=== PATIENT | female | born 1940 | race Caucasian/White ===

== ENCOUNTER 2021-06-04 22:08 | Inpatient (IN) | payer MEDICARE, OTHER ==
[~2021-06-04] VITALS: Ht 165.1 cm; Wt 65.1 kg
[2021-06-04] MEDS ORDERED: ACETAMINOPHEN TAB 650MG DOSE (2X325MG) PO ONE (22:30)
[2021-06-04 23:02] LABS: HEMATOCRIT 39.7 % (36.0-47.0); HEMOGLOBIN 13.1 g/dl (12.0-15.5); MEAN CORPUSCULAR HEMOGLOBIN 30.4 pg (27.0-33.0); MEAN CORPUSCULAR VOLUME 92.1 fl (80.0-96.0); PLATELET COUNT, AUTOMATED 180 10^3/uL (150-450); RED BLOOD COUNT 4.31 10^6/uL (4.00-5.40)
[2021-06-04 23:17] LABS: INR 1.11; PARTIAL THROMBOPLASTIN TIME 26.2 SECONDS (24.2-38.5); PROTHROMBIN TIME 14.5 SECONDS (12.5-14.3)
[2021-06-04] MEDS ORDERED: NS 1,000 ML IV ONE (23:25)
[2021-06-04 23:44] LABS: ALBUMIN 3.5 GM/DL (3.2-5.2); ALT/SGPT 26 U/L (12-78); BILIRUBIN,TOTAL 1.9 MG/DL (0.2-1.0); BLOOD UREA NITROGEN 26 MG/DL (7-18); CALCIUM LEVEL 10.4 MG/DL (8.8-10.2); CARBON DIOXIDE LEVEL 25 MEQ/L (21-32); CHLORIDE LEVEL 107 MEQ/L (98-107); CK-MB VALUE MASS < 1.0 NG/ML (<3.6); CPK CREATINE PHOSPHOKINASE 71 U/L (26-192); CREATININE FOR GFR 1.59 MG/DL (0.55-1.30); GLOMERULAR FILTRATION RATE 33.3 (>32); GLUCOSE, FASTING 117 MG/DL (70-100); LIPASE 56 U/L (73-393); MB/CK RELATIVE INDEX 1.41 (< OR =4); POTASSIUM SERUM 3.2 MEQ/L (3.5-5.1); SODIUM LEVEL 140 MEQ/L (136-145); TOTAL PROTEIN 7.3 GM/DL (6.4-8.2); TROPONIN I < 0.02 NG/ML (< 0.10)
[2021-06-04 23:45] LABS: LYMPHOCYTES 3 % (16-44); METAMYELOCYTES 2 % (0-0); NEUTROPHILS 87 % (28-66); PLATELET CLUMPS SMALL AMT; PLATELET ESTIMATE NORMAL (NORMAL); SMUDGE CELLS 1+
[2021-06-04] MEDS: METOPROLOL 5 MG/5 ML VIAL IV SCH (23:55)
--- NOTE | 2021-06-04 23:56 | REPVR ---
PROCEDURE INFORMATION: Exam: XR Chest Exam date and time: 06/04/2021 10:32 PM Age: 80 years old Clinical indication: Pain; Angina pectoris; Additional info: Chest pain TECHNIQUE: Imaging protocol: XR of the chest. Views: 1 view. COMPARISON: 1. CR Chest, 2 view PA, Lat 2015-06-13 12:[address] Chest with contrast 2015-05-09 16:29 FINDINGS: Lungs: Unremarkable. No consolidation. Pleural spaces: Unremarkable. No pleural effusion. No pneumothorax. Heart/Mediastinum: Unremarkable. No cardiomegaly. Bones/joints: Unremarkable. IMPRESSION: No acute findings. Electronically signed by: Olivier Bardales On 06/04/2021 23:55:48 PM
[2021-06-05] MEDS ORDERED: cefTRIAXone SOD 2 GM in D5W MINI-BAG PLUS 50 ML IV ONE (00:10)
[2021-06-05] MEDS ORDERED: NS 910 ML in IV 1 EA IV ONE (00:10)
[2021-06-05] MEDS: METOPROLOL 5 MG/5 ML VIAL IV SCH ×2 (00:40→01:42)
[2021-06-05] MEDS ORDERED: AMIODARONE HCL 150 MG in IV 1 EA IV STA (01:40)
[2021-06-05] MEDS ORDERED: POTASSIUM CHLORIDE 10 MEQ SR TABLET PO ONE (01:45)
[2021-06-05] MEDS ORDERED: VANCOMYCIN HCL 750 MG, VIAL MATE ADAPTER 1 EACH in NS 250 ML IV ONE (02:00)
[2021-06-05] MEDS ORDERED: VANCOMYCIN HCL 500 MG in D5W MINI-BAG PLUS 100 ML IV ONE (03:00)
[2021-06-05] MEDS ORDERED: NS 1,000 ML IV ONE (03:25)
--- NOTE | 2021-06-05 03:59 | HPEPDOC ---
[facility] Medical History & Physical Date of Admission Jun 05, 2021 Date of Service: Jun 05, 2021 History and Physical CHIEF COMPLAINT: shortness of breath HISTORY OF PRESENT ILLNESS: 80-year-old female presents to the ER with 3-day history of worsening shortness of breath and "gas pain" epigastric abdominal discomfort labored breathing with no improvement after taking some Maalox and coke at home patient said that she has been weak and felt like her knees were buckling from under her unable to walk down the hallway and felt terrible with epigastric and substernal chest pain described as gas pain which did not get better after burping. Patient denies any diaphoresis nausea vomiting fever chills cough diarrhea or constipation she denied any dysuria urgency frequency. Patient lives alone since her but her brother calls her every night and encouraged her to come to the ER because she sounded short of breath on the telephone. Patient usually goes country music dancing but was very tired and fatigued for the past 3 days In the emergency room she was found to have uncontrolled atrial fibrillation with ventricular rate of 127 to 180 bpm and was given a total of 10 mg of intravenous Lopressor with decrease in blood pressure from 125 on admission to 96/52, given 1 dose of intravenous amiodarone 150 mg. She was found to have bandemia of 8 fever 102.5 lactic acidosis elevated bilirubin and Cystitis. Hospitalist was called to admit the patient for sepsis secondary to urinary tract infection cystitis and new onset A. fib with RVR. PAST MEDICAL HISTORY: 4.1 cm ascending thoracic aortic aneurysm, hepatic and right renal cysts, hypertension dyslipidemia cervical cancer kidney stones urinary tract infection with MRSA and Enterococcus faecalis Escherichia coli PAST SURGICAL HISTORY: Hysterectomy due to cervical cancer left nephrectomy left kidney stent chronic kidney disease stage III SOCIAL HISTORY: Lives alone has a cat never smoked cigarettes no alcohol use or recreational drug use retired previously worked for [employer] has a brother Alvin Isabella patient says that her healthcare proxy is her primary care physician Dr. Abby Goss no healthcare proxy form has been filled out. Patient says she does not want CPR or intubation with mechanical ventilation but has not never filled out a MOLST form FAMILY HISTORY: Mother father in their 90s and known medical problems ALLERGIES: Please see below. REVIEW OF SYSTEMS: 10 point review of systems negative aside from positive findings in HPI HOME MEDICATIONS: Please see below. PHYSICAL EXAMINATION: VITAL SIGNS: See below GENERAL APPEARANCE: No distress no pallor awake alert oriented x3 HEENT: Face is symmetric tongue is midline pupils equally round reactive extraocular muscles are intact missing teeth no JVD no thyromegaly no cervical lymphadenopathy CARDIOVASCULAR: S1-S2 irregularly irregular tachycardic LUNGS: Diminished air entry is equal bilaterally clear to auscultation ABDOMEN: Positive bowel sounds soft slightly tender epigastric right upper quadrant no rebound or guarding no hepatosplenomegaly EXTREMITIES: Trace edema bilateral lower extremity bilateral knees without effusion full range of motion LABORATORY DATA: See below. IMAGING: See below MICROBIOLOGY: Please see below. ASSESSMENT: 80-year-old female presents with new onset A. fib with RVR cystitis and abnormal liver function test with complaints of "gas pain" in the epigastric area. Atrial fibrillation with rapid ventricle response, new onset -Due to hypotension with sbp 96 mmhg, pt was given iv amiodarone, s/p metoprolol 10 mg iv in the er, eliquis renally dosed bid -echo ordered -ivfluids to maintain map>70 -Check cardiac markers every 6 hourly Cystitis -due to history of urine cx : (+) mrsa, enteroccocus, vanco iv given to be renally dosed by pharmacy. -IV ceftriaxone. Change antibiotics depending on urine culture sensitivity result Abnormal liver function tests with elevated bilirubin -N.p.o. after midnight -Ultrasound gallbladder rule out cholelithiasis, biliary colic Ascending thoracic aortic aneurysm 4.1cm -Repeat CT chest -Monitor blood pressure History of cervical cancer status post hysterectomy Dyslipidemia -Check lipid profile. -Resume home dose of pravastatin Hypothyroidism -Check TSH Chronic kidney disease stage III -History of kidney stones recurrent UTIs left kidney stent status post left nephrectomy -Avoid nephrotoxins renally dose all medications strict I's and O's Bilateral knee pain -Check x-rays bilateral knee. -Avoid NSAIDs due to CKD stage III. -Tylenol as needed for pain CODE STATUS: Obtain MOLST form from patient's primary care physician Dr. Abby Goss patient does not have a MOLST form or healthcare proxy form with her. She says that Dr. Goss is her healthcare proxy. She states that she does not want CPR intubation or mechanical ventilation. Diet: Renal diet DVT prophylaxis: On Eliquis for new onset A. fib Vital Signs Vital Signs Date Time Temp Pulse Resp B/P (MAP) Pulse Ox O2 Delivery O2 Flow Rate FiO2 06/05/21 02:45 98.3 100 100/58 (72) 91 06/04/21 23:15 18 Room Air Laboratory Data Labs 24H Laboratory Tests 2 06/04/21 22:41: Neutrophils (%) (Auto) , Nucleated Red Blood Cells % (auto) 0.0, Neutrophils 87H, Band Neutrophils 8, Lymphocytes (Manual) 3L, Metamyelocytes 2H, Smudge Cells 1+, Platelet Estimate NORMAL, Clumped Platelets SMALL AMT, Prothrombin Time 14.5H, Prothromb Time International Ratio 1.11, Activated Partial Thromboplast Time 26.2, Anion Gap 8, Glomerular Filtration Rate 33.3, Lactic Acid Level 3.1*H, Calcium Level 10.4H, Total Bilirubin 1.9H, Direct Bilirubin 1.0H, Aspartate Amino Transf (AST/SGOT) 28, Alanine Aminotransferase (ALT/SGPT) 26, Alkaline Phosphatase 180H, Total Creatine Kinase 71, Creatine Kinase MB < 1.0, Creatine Kinase MB Relative Index 1.41, Troponin I < 0.02, Total Protein 7.3, Albumin 3.5, Albumin/Globulin Ratio 0.9L, Lipase 56L, Thyroid Stimulating Hormone (TSH) 3.060 06/05/21 00:32: Urine Color FAISAL, Urine Appearance TURBIDH, Urine pH 5.0, Urine Specific [place] 1.011, Urine Protein 2+H, Urine Glucose (UA) NEGATIVE, Urine Ketones NEGATIVE, Urine Blood 3+H, Urine Nitrite POSITIVEH, Urine Bilirubin NEGATIVE, Urine Urobilinogen 0.2, Urine Leukocyte Esterase 3+H, Urine WBC (Auto) TNTCH, Urine RBC (Auto) 169H, Urine Hyaline Casts (Auto) 0, Urine Bacteria (Auto) 3+H, Urine Squamous Epithelial Cells 0, Urine Mucus (Auto) SMALL, Urine Sperm (Auto) CBC/BMP Laboratory Tests 06/04/21 22:41 Microbiology Microbiology 06/05/21 Urine Culture, Received Pending 06/04/21 Respiratory Virus Panel (PCR) (MERRY) - Final, Complete 06/04/21 Blood Culture, Received Pending 06/04/21 Blood Culture, Received Pending Allergies Coded Allergies: No Known Allergies (Unverified , 06/04/21) A-FIB/CHADSVASC A-FIB History Current/History of A-Fib/PAF?: Yes Current PO Anticoag Therapy: Yes Age/Risk Factor Scoring CHADSVASC: CHADSVASC Response (Comments) Value Age Risk Factor Age >/= 75 years old 2 Gender Risk Factor Female 1 Hx of CHF No 0 Hx of HTN Yes 1 Hx of Stroke/TIA/or VTE No 0 Hx of Diabetes No 0 Hx of Vascular Disease No 0 Total 4 Treatment Treatment ordered: Apixaban MONIKA GOTTI MD Jun 05, 2021 03:49
[2021-06-05 04:11] LABS: HEMATOCRIT 34.3 % (36.0-47.0); HEMOGLOBIN 11.2 g/dl (12.0-15.5); MEAN CORPUSCULAR HEMOGLOBIN 30.4 pg (27.0-33.0); MEAN CORPUSCULAR HGB CONC 32.7 g/dl (32.0-36.5); MEAN CORPUSCULAR VOLUME 93.2 fl (80.0-96.0); PLATELET COUNT, AUTOMATED 159 10^3/uL (150-450); RED BLOOD COUNT 3.68 10^6/uL (4.00-5.40); WHITE BLOOD COUNT 19.5 10^3/uL (4.0-10.0)
--- NOTE | 2021-06-05 04:16 | REPVR ---
PROCEDURE INFORMATION: Exam: XR Right Knee Exam date and time: 06/05/2021 4:07 AM Age: 80 years old Clinical indication: Pain; Knee; Bilateral; Additional info: Knee pain TECHNIQUE: Imaging protocol: XR Right knee. Views: 1 or 2 views. COMPARISON: No relevant prior studies available. FINDINGS: Bones/joints: Moderate severe tricompartmental degenerative joint disease. No acute fracture or dislocation. Soft tissues: Normal. IMPRESSION: No acute osseous abnormality. PROCEDURE INFORMATION: Exam: XR Left Knee Exam date and time: 06/05/2021 4:07 AM Age: 80 years old Clinical indication: Pain; Knee; Bilateral; Additional info: Knee pain TECHNIQUE: Imaging protocol: XR Left knee. Views: 1 or 2 views. COMPARISON: No relevant prior studies available. FINDINGS: Bones/joints: Moderate severe tricompartmental degenerative joint disease. No acute fracture or dislocation. Soft tissues: Normal. IMPRESSION: No acute osseous abnormality. Electronically signed by: Olivier Bardales On 06/05/2021 04:15:21 AM
[2021-06-05] MEDS ORDERED: APIXABAN 5 MG TAB (ELIQUIS) PO STA (04:21)
[2021-06-05 04:37] LABS: LYMPHOCYTES 2 % (16-44); METAMYELOCYTES 8 % (0-0); MONOCYTES 1 % (0-5); NEUTROPHILS 76 % (28-66)
[2021-06-05 04:38] LABS: PLATELET ESTIMATE DECREASED (NORMAL)
[2021-06-05 04:40] LABS: SMUDGE CELLS 1+
[2021-06-05 04:41] LABS: PLATELET CLUMPS SMALL AMT
[2021-06-05 04:48] VITALS: BP 108/74
[2021-06-05 04:54] LABS: BLOOD UREA NITROGEN 28 MG/DL (7-18); CARBON DIOXIDE LEVEL 23 MEQ/L (21-32); CHLORIDE LEVEL 112 MEQ/L (98-107); CREATININE FOR GFR 1.56 MG/DL (0.55-1.30); GLUCOSE, FASTING 115 MG/DL (70-100); POTASSIUM SERUM 3.8 MEQ/L (3.5-5.1); SODIUM LEVEL 142 MEQ/L (136-145)
[2021-06-05 04:55] LABS: CALCIUM LEVEL 8.9 MG/DL (8.8-10.2); CHOLESTEROL LEVEL 121 MG/DL (<200); CK-MB VALUE MASS < 1.0 NG/ML (<3.6); CPK CREATINE PHOSPHOKINASE 62 U/L (26-192); HDL CHOLESTEROL 59 MG/DL (>40); LDL CHOLESTEROL 50 MG/DL (<100); MAGNESIUM LEVEL 1.9 MG/DL (1.8-2.4); MB/CK RELATIVE INDEX 1.61 (< OR =4); NON-HDL-C 62 MG/DL; TRIGLYCERIDES LEVEL 60 MG/DL (<150); TROPONIN I 0.02 NG/ML (< 0.10)
--- NOTE | 2021-06-05 05:26 | ECGEPIP ---
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
[2021-06-05] MEDS ORDERED: PRAV40TA2 PO (06:05)
[2021-06-05] MEDS ORDERED: ACET650T61 PO (06:05)
[2021-06-05] MEDS ORDERED: AMLO1TAB25 PO (06:05)
[2021-06-05] MEDS ORDERED: CLON-412 PO (06:05)
[2021-06-05] MEDS ORDERED: D31000TA2 PO (06:05)
[2021-06-05] MEDS ORDERED: BENA20TA PO (06:05)
[2021-06-05] MEDS: METOPROLOL TART 25 MG TABLET PO SCH ×4 (06:12→23:50)
[2021-06-05 08:00] VITALS: BP 115/79
[2021-06-05] MEDS: LACTOBACILLUS ACIDOPHILUS CAP (BACID) PO SCH ×3 (08:32→17:43)
--- NOTE | 2021-06-05 09:11 | REPVR ---
PROCEDURE INFORMATION: Exam: US Abdomen, Limited; Right Upper Quadrant Exam date and time: 06/05/2021 6:57 AM Age: 80 years old Clinical indication: Abnormal findings; Abnormal lab test; Elevated liver enzymes; Additional info: Elevated bili TECHNIQUE: Imaging protocol: US abdomen. Real time ultrasound with image documentation. Limited exam focused on the right upper quadrant. COMPARISON: CT Chest with contrast 05/09/2015 4:29 PM FINDINGS: Liver: There are few scattered hepatic cysts. Gallbladder: The gallbladder is partially distended. There is a 4 mm gallbladder polyp. There are no gallstones. Common bile duct: The common bile duct measures 3 mm. Pancreas: Visualized pancreas is unremarkable. Right kidney: The right kidney measures 13.1 cm in greatest sagittal dimension. There is moderate right hydronephrosis. There is a simple cyst extending from the right upper pole measuring 4.4 cm. IMPRESSION: 1. There is no biliary duct dilatation. 2. 4 mm gallbladder polyp. A repeat exam in 6 months is recommended to document for stability. 3. Moderate right hydronephrosis of uncertain etiology. Electronically signed by: Kalpesh Rowland On 06/05/2021 09:11:00 AM
[2021-06-05 12:00] VITALS: BP 131/75
[2021-06-05 16:00] VITALS: BP 131/83
[2021-06-05] MEDS: NS 1,000 ML IV SCH ×2 (16:40→21:24)
--- NOTE | 2021-06-05 17:21 | IPNPDOC ---
Text Note Date of Service The patient was seen on 06/05/21. NOTE Subjective: -Reports feeling better than she did on presentation -Otherwise currently without pain Objective: VITAL SIGNS: See below GENERAL APPEARANCE: NAD, conversational, AOx3 HEENT: NCAT, EOMI, moist mucous membranes CARDIOVASCULAR: Irregularly irregular and tachycardic LUNGS: Some wheezing close to bilateral apices, otherwise clear ABDOMEN:Normoactive bowel sounds, soft nontender on my examination without rebound or guarding EXTREMITIES: Trace edema bilateral lower extremity edema. WWP Psych: Aox3 LABORATORY DATA: Reviewed IMAGING: Gall bladder US: Liver: There are few scattered hepatic cysts. Gallbladder: The gallbladder is partially distended. There is a 4 mm gallbladder polyp. There are no gallstones. Common bile duct: The common bile duct measures 3 mm. Pancreas: Visualized pancreas is unremarkable. Right kidney: The right kidney measures 13.1 cm in greatest sagittal dimension. There is moderate right hydronephrosis. There is a simple cyst extending from the right upper pole measuring 4.4 cm. IMPRESSION: 1. There is no biliary duct dilatation. 2. 4 mm gallbladder polyp. A repeat exam in 6 months is recommended to document for stability. 3. Moderate right hydronephrosis of uncertain etiology. MICROBIOLOGY: Please see below. ASSESSMENT: 80-year-old female presents with new onset A. fib with RVR cystitis and abnormal liver function test with complaints of "gas pain" in the epigastric area. New onset atrial fibrillation with rapid ventricle response -s/p ED metop and amiodarone x 1 dose in the ED -Was started on eliquis renally dosed bid, will continue -TTE pending -s/p IVF, check repeat labs for resolution of lactic acidosis, otherwise normotensive -negative troponin, EKG without acute ST changes Sepsis 2/2 UTI: fever, tachycardia, leukocytosis with bandemia and lactic acidosis with +++UA -Positive UA, with pending urine culture, to follow up speciation and sensitivities -f/u BCx -s/p 3L IVF -Has a history of mrsa and enteroccocus and for now will continue renally dosed by pharmacy vancomycin for 24h, in addition to ceftriaxone. UTI: --Positive UA, with pending urine culture, to follow up speciation and se nsitivities -f/u BCx -antibiotics as noted above Cholestatic LFT abnormalities with elevated alk phos bilirubin -Ultrasound gallbladder showed a polyp but without stones of biliary duct dilatation -check GGT -repeat LFTs this PM -no noted complaints or examination findings at this moment, will monitor History of ascending thoracic aortic aneurysm 4.1cm, last noted imaging was in 2014 -Pending TTE -Normotensive currently VALERIANO on CKD with a history of remote L nephrectomy and history of prior kidney stones -Gallbladder US noted R moderate hydro. Now pending CT A/P -s/p fluids, repeat BMP -strict I/Os -holding ACEi among the antihypertensives while septic Hypertension: holding all meds while septic -holding benazepril, amlodipine and clonidine Dyslipidemia -Resume home pravastatin CODE STATUS: DNR/DNI Diet: Renal diet DVT prophylaxis: On Eliquis for new onset A. fib VS,Fishbone, I+O VS, Fishbone, I+O Laboratory Tests 06/04/21 22:41 06/05/21 04:05 Vital Signs Date Time Temp Pulse Resp B/P (MAP) Pulse Ox O2 Delivery O2 Flow Rate FiO2 06/05/21 12:38 97 131/75 06/05/21 12:00 97.8 16 87 Room Air I&O- Last 24 Hours up to 6 AM 06/05/21 06:00 Intake Total 1960 ml Balance 1960 ml NICOLASA WEATHERS MD Jun 05, 2021 17:21
[2021-06-05] MEDS: PRAVASTATIN 20 MG TAB PO SCH (17:43)
--- NOTE | 2021-06-05 18:10 | REPVR ---
PROCEDURE INFORMATION: Exam: CT Abdomen And Pelvis Without Contrast Exam date and time: 06/05/2021 5:28 PM Age: 80 years old Clinical indication: Abnormal findings; Abnormal radiologic finding of the abdomen; Radiologic exam and body structure: Reed with noted hydro on gall bladder US; Prior surgery; Additional info: History of aaa, reed with noted hydro on gall bladder US TECHNIQUE: Imaging protocol: Computed tomography of the abdomen and pelvis without contrast. Radiation optimization: All CT scans at this facility use at least one of these dose optimization techniques: automated exposure control; mA and/or kV adjustment per patient size (includes targeted exams where dose is matched to clinical indication); or iterative reconstruction. COMPARISON: US Abdomen 06/05/2021 6:43 AM FINDINGS: Lungs: Bibasilar atelectasis. Air bronchograms demonstrated in an infiltrate in the medial basal segment of the left lower lobe. Clinical correlation to exclude focus of pneumonitis suggested. Pleural spaces: Small bilateral pleural effusions. Heart: Cardiomegaly. Liver: Multiple hypodensities demonstrated in the liver measuring up to 1.6 cm in segment 2. Findings likely correspond to the cysts demonstrated on prior ultrasound. Confirmation with hepatic MRI could be obtained if further imaging is desired. Gallbladder and bile ducts: Normal. No calcified stones. No ductal dilation. Pancreas: Normal. No ductal dilation. Spleen: Normal. No splenomegaly. Adrenal glands: There is bilateral adrenal hyperplasia. Kidneys and ureters: Simple cyst upper pole right kidney measures 3.9 cm. No follow-up suggested. There has been an apparent left nephrectomy with absence of the kidney in the left renal fossa or pelvis in this patient with no reported history of nephrectomy. Typically expected postoperative changes demonstrated. No mass demonstrated. There is moderate right hydroureteronephrosis with the distal right ureter traced to the level of the origin of the right external iliac artery below which still ureter is not clearly visualized. Uncertain as to whether there is obstructive regional adenopathy or other obstructive mass resulting in the hydronephrosis. Further evaluation with postcontrast CT urography suggested if clinically desired. There is right renal hypertrophy with sagittal dimensions of the right kidney measuring 13 cm. Stomach and bowel: There is poor distention and thickening of the hay of the stomach most likely related to incomplete distention with oral contrast media or water. If there is any suspicion for infiltrative pathology further evaluation suggested. There is increased feces throughout the colon consistent with constipation. Mild diverticulosis is present in the left colon. No diverticulitis. Appendix: No evidence of appendicitis. Intraperitoneal space: There is a small amount of free intraperitoneal fluid present. Vasculature: The aortoiliac vessels demonstrate moderate atherosclerotic calcification. Lymph nodes: Unremarkable. No enlarged lymph nodes. Urinary bladder: Unremarkable as visualized. Reproductive: There has been a hysterectomy. Bones/joints: The spine demonstrates mild degenerative changes. Mild central spinal stenosis L2-L3, moderate central spinal stenosis L3-L4 and moderate to severe central spinal stenosis L4-L5. Bulging annulus L5-S1. Soft tissues: There is mild soft tissue edema demonstrated in the abdominal wall, flanks and buttock regions consistent with anasarca. IMPRESSION: 1. Air bronchograms demonstrated in an infiltrate in the medial basal segment of the left lower lobe. Clinical correlation to exclude focus of pneumonitis suggested. 2. Cardiomegaly. 3. Multiple hypodensities demonstrated in the liver. Findings likely correspond to the cysts demonstrated on prior ultrasound. Confirmation with hepatic MRI could be obtained if further imaging is desired. 4. There is bilateral adrenal hyperplasia. 5. There has been an apparent left nephrectomy with absence of the kidney in the left renal fossa or pelvis in this patient with no reported history of nephrectomy. Typically expected postoperative changes demonstrated. No mass demonstrated. 6. There has been a hysterectomy. 7. Right renal hypertrophy. There is moderate right hydroureteronephrosis with the distal right ureter traced to the level of the origin of the right external iliac artery below which still ureter is not clearly visualized. Uncertain as to whether there is obstructive regional adenopathy or other obstructive mass resulting in the hydronephrosis. Further evaluation with postcontrast CT urography suggested if clinically desired. 8. There is a small amount of free intraperitoneal fluid present. 9. There is increased feces throughout the colon consistent with constipation. 10. Anasarca. 11. Mild diverticulosis is present in the left colon. No diverticulitis. COMMENTS: Consistent with the [employer]'s Incidental Findings Committee white paper (J Am Carson Radiol 2018): Any incidental renal lesion less than 1 cm or classified as too small to characterize, or any incidental cystic renal lesion characterized as simple-appearing, is likely benign. No follow-up imaging is recommended for these lesions per consensus recommendations based on imaging criteria. Electronically signed by: Eliecer Sykes On 06/05/2021 18:09:55 PM
[2021-06-05 18:17] LABS: HEMATOCRIT 35.9 % (36.0-47.0); HEMOGLOBIN 11.9 g/dl (12.0-15.5); MEAN CORPUSCULAR HEMOGLOBIN 30.8 pg (27.0-33.0); MEAN CORPUSCULAR HGB CONC 33.1 g/dl (32.0-36.5); PLATELET COUNT, AUTOMATED 174 10^3/uL (150-450); RED BLOOD COUNT 3.86 10^6/uL (4.00-5.40); WHITE BLOOD COUNT 27.6 10^3/uL (4.0-10.0)
[2021-06-05 18:53] LABS: CALCIUM LEVEL 9.7 MG/DL (8.8-10.2); CREATININE FOR GFR 1.71 MG/DL (0.55-1.30); GLOMERULAR FILTRATION RATE 30.6 (>32); POTASSIUM SERUM 4.7 MEQ/L (3.5-5.1)
[2021-06-05 19:03] LABS: BILIRUBIN,DIRECT 0.3 MG/DL (0.0-0.2); BILIRUBIN,TOTAL 0.8 MG/DL (0.2-1.0); TOTAL PROTEIN 6.9 GM/DL (6.4-8.2)
[2021-06-05 20:00] VITALS: BP 137/79
[2021-06-05] MEDS: PIPERACILLIN/TAZOBACTAM SOD 3.375 GM in D5W MINI-BAG PLUS 50 ML IV SCH (20:09)
[2021-06-05] MEDS: APIXABAN 2.5 MG TAB (ELIQUIS) PO SCH (20:11)
[2021-06-05] MEDS ORDERED: IPRATROPIUM 0.5MG/ALBUTEROL 2.5MG INH SOL UD 3ML (DUONEB) NEB ONE (20:20)
[2021-06-06] VITALS: BP 143/82
[2021-06-06] MEDS ORDERED: VANCOMYCIN HCL 1,000 MG, VIAL MATE ADAPTER 1 EACH in NS 250 ML IV SCH ×3
[2021-06-06 00:57] LABS: NT-PRO BNP 15645 PG/ML (<450)
[2021-06-06] MEDS ORDERED: FUROSEMIDE 40MG/4ML VIAL (J1940) IV ONE ×2 (01:05→10:15)
--- NOTE | 2021-06-06 02:10 | REPVR ---
PROCEDURE INFORMATION: Exam: XR Chest Exam date and time: 06/06/2021 12:36 AM Age: 80 years old Clinical indication: Other: Hypoxia TECHNIQUE: Imaging protocol: XR of the chest. Views: 1 view. COMPARISON: CR PORTABLE CHEST X-RAY 06/04/2021 10:27 PM FINDINGS: Lungs: Slight left base clearing with better delineation of the left hemidiaphragm. Question of minimal right infrahilar infiltrate or atelectasis since the prior study. Pleural spaces: Unremarkable. No pleural effusion. No pneumothorax. Heart/Mediastinum: The heart and mediastinum are unchanged. Bones/joints: Unremarkable. IMPRESSION: 1. Slight left base clearing since 06/04/2021. 2. Question of minimal right infrahilar infiltrate or atelectasis since the prior study. Electronically signed by: Ismael Tamayo On 06/06/2021 02:09:58 AM
[2021-06-06] MEDS: PIPERACILLIN/TAZOBACTAM SOD 3.375 GM in D5W MINI-BAG PLUS 50 ML IV SCH ×4 (04:01→20:07)
[2021-06-06 04:42] VITALS: BP 128/78
[2021-06-06] MEDS: METOPROLOL TART 25 MG TABLET PO SCH ×4 (04:55→23:29)
[2021-06-06 05:48] LABS: BASO % 0.2 % (0.0-1.0); HEMATOCRIT 34.9 % (36.0-47.0); HEMOGLOBIN 11.7 g/dl (12.0-15.5); LYMPH # 0.5 10^3/uL (1.5-5.0); LYMPH % 1.9 % (24.0-44.0); MEAN CORPUSCULAR HEMOGLOBIN 30.7 pg (27.0-33.0); MEAN CORPUSCULAR HGB CONC 33.5 g/dl (32.0-36.5); MEAN CORPUSCULAR VOLUME 91.6 fl (80.0-96.0); MONO # 0.6 10^3/uL (0.0-0.8); MONO % 2.2 % (2.0-8.0); NEUTROPHILS # 24.2 10^3/uL (1.5-8.5); NEUTROPHILS % 93.6 % (36.0-66.0); PLATELET COUNT, AUTOMATED 158 10^3/uL (150-450); RED BLOOD COUNT 3.81 10^6/uL (4.00-5.40); WHITE BLOOD COUNT 25.8 10^3/uL (4.0-10.0)
[2021-06-06 05:59] LABS: CALCIUM LEVEL 8.9 MG/DL (8.8-10.2); CREATININE FOR GFR 1.81 MG/DL (0.55-1.30); GLOMERULAR FILTRATION RATE 28.6 (>32); POTASSIUM SERUM 4.4 MEQ/L (3.5-5.1)
[2021-06-06 08:00] VITALS: BP 138/92
[2021-06-06] MEDS: PRAVASTATIN 20 MG TAB PO SCH (08:23)
[2021-06-06] MEDS: LACTOBACILLUS ACIDOPHILUS CAP (BACID) PO SCH ×3 (08:23→20:06)
[2021-06-06] MEDS: APIXABAN 2.5 MG TAB (ELIQUIS) PO SCH ×2 (08:24→20:06)
[2021-06-06] MEDS ORDERED: cefTRIAXone SOD 1 GM in D5W MINI-BAG PLUS 50 ML IV SCH (09:00)
--- NOTE | 2021-06-06 11:01 | SMCUROLCON ---
Urology Consultation General Date of Consultation 06/06/21 Reason For Consultation This patient is seen for Atrial Fibrillation With Rapid Ventricular Respons. History of Present Illness 80 yo woman with solitary right kidney with moderate hydronephrosis of uncertain etiology. Pt with rising WBC 25k and dirty UA possible urosepsis. Pt receiving IV abx but ID being consulted to expand given rising leukocytosis and right sided pain, patient made NPO and will plan for cystoscopy and right stent insertion. Recommend post-op step down or ICU monitoring. She presented with new onset A. fib with RVR cystitis and abnormal liver function test with complaints of "gas pain" in the epigastric area. Medications Current Medications Current Medications Medications (Trade) Dose Ordered Sig/Artemio Route PRN Reason Start Time Stop Time Status Last Admin Dose Admin Amiodarone HCl 150 mg/IV Miscellaneous Supplies 100 ml @ 600 mls/hr STAT STAT IV 06/05/21 01:40 06/05/21 01:49 DC 06/05/21 02:00 Apixaban (Eliquis) 2.5 mg BID PO 06/05/21 21:00 06/05/21 20:11 Apixaban (Eliquis) 5 mg STAT STAT PO 06/05/21 04:21 06/05/21 04:22 DC 06/05/21 06:13 Ceftriaxone Sodium 1 gm/ Dextrose 50 ml @ 100 mls/hr Q24H IV 06/06/21 09:00 06/05/21 19:36 DC Lactobacillus Acidophilus (Bacid) 1 ea WM PO 06/05/21 08:00 06/06/21 08:23 Metoprolol Tartrate (Lopressor) 5 mg Q5M IV 06/04/21 23:25 06/04/21 23:36 DC 06/05/21 00:40 Metoprolol Tartrate (Lopressor) 25 mg Q6H PO 06/05/21 06:00 06/06/21 04:55 Piperacillin Sod/ Tazobactam Sod 3.375 gm/Dextrose 50 ml @ 50 mls/hr Q6H IV 06/05/21 20:00 06/06/21 08:23 Pravastatin Sodium (Pravachol) 40 mg DAILY PO 06/05/21 09:00 06/06/21 08:23 Sodium Chloride 1,000 ml @ 150 mls/hr Q6H40M IV 06/05/21 16:40 06/05/21 23:40 DC 06/05/21 21:24 Vancomycin HCl 1000 mg/IV Miscellaneous Supplies 1 each/ Sodium Chloride 270 ml @ 270 mls/hr Q24H IV 06/06/21 00:00 06/05/21 23:49 Allergies Allergies: Coded Allergies: No Known Allergies (Unverified , 06/04/21) Vital Signs/I&O Vital Signs Date Time Temp Pulse Resp B/P (MAP) Pulse Ox O2 Delivery O2 Flow Rate FiO2 06/06/21 08:00 99.0 108 20 138/92 (107) 89 Nasal Cannula 2.0 06/05/21 20:00 88 I&O- Last 24 Hours up to 6 AM 06/06/21 06:00 Intake Total 1960 ml Output Total 900 ml Balance 1060 ml Laboratory Data 24H Labs Laboratory Tests 2 06/05/21 17:42: Nucleated Red Blood Cells % (auto) 0.0, Anion Gap 9, Glomerular Filtration Rate 30.6L, Lactic Acid Level 2.0, Calcium Level 9.7, Total Bilirubin 0.8#, Direct Bilirubin 0.3H, Gamma Glutamyl Transferase 87H, Aspartate Amino Transf (AST/SGOT) 39H, Alanine Aminotransferase (ALT/SGPT) 31, Alkaline Phosphatase 102, DB-Awx-A-Type Natriuretic Peptide 24824Z, Total Protein 6.9, Albumin 3.0L, Albumin/Globulin Ratio 0.8L 06/06/21 05:23: Nucleated Red Blood Cells % (auto) 0.0, Anion Gap 6L, Glomerular Filtration Rate 28.6L, Calcium Level 8.9, Immature Granulocyte % (Auto) 2.1, Neutrophils (%) (Auto) 93.6H, Lymphocytes (%) (Auto) 1.9L, Monocytes (%) (Auto) 2.2, Eosinophils (%) (Auto) 0.0, Basophils (%) (Auto) 0.2, Neutrophils # (Auto) 24.2H, Lymphocytes # (Auto) 0.5L, Monocytes # (Auto) 0.6, Eosinophils # (Auto) 0.0, Basophils # (Auto) 0.0 CBC/BMP Laboratory Tests 06/05/21 17:42 06/06/21 05:23 Microbiology Microbiology 06/06/21 Blood Culture, Received Pending 06/05/21 Urine Culture, Received Pending 06/04/21 Respiratory Virus Panel (PCR) (MERRY) - Final, Complete 06/04/21 Blood Culture - Preliminary, Resulted 06/04/21 Blood Culture - Preliminary, Resulted Assessment 80 yo F with right hydro and urosepsis Plan NPO COVID test Cystoscopy and right stent insertion, if fails may require nephrostomy tube Time Spent on Consult: Time Spent / Consult (Minutes): 20 REDDY MOTTA M.D. Jun 06, 2021 11:01
[2021-06-06 12:00] VITALS: BP 125/97
--- NOTE | 2021-06-06 13:59 | CR ---
INITIAL INPATIENT CONSULTATION DATE: 06/06/2021 REQUESTING PHYSICIAN: Dr. Martha Tripathi CONSULTING PHYSICIAN: Dr. Armida Crouch REASON FOR CONSULTATION: Management of acute renal failure and hydronephrosis. CHIEF COMPLAINT: Patient presented to the hospital on 06/05/2021 with shortness of breath and abdominal discomfort. HISTORY OF PRESENT ILLNESS: Angelita Ribera is an 80-year-old female with past medical history of solitary functioning right kidney, multiple other comorbidities as mentioned below, who presented to the hospital one day ago with shortness of breath, abdominal discomfort, constipation; taking Maalox and Coke at home did not work. In the Emergency Room, she was found to have atrial fibrillation with RVR and heart rate up to 180 beats per minute. She was given I.V. Lopressor and I.V. Amiodarone. Later on, labs showed that the patient had sepsis, fever of 102.5 degrees Fahrenheit. She had leukocytosis and bandemia and lactic acidosis and signs of acute renal failure along with a UTI. She was admitted under the hospitalist service with atrial fibrillation with RVR and cystitis. She was given I.V. antibiotics, however, further imaging revealed that the patient had possible right-sided hydronephrosis and absent left kidney. Nephrology service was called for further help in the management of this patient. Her creatinine on arrival was 1.5 and it is 1.8 today. I saw and evaluated the patient today morning at the bedside. She was able to provide me with some history. The rest of the history was obtained from medical team and from patient's chart. Patient is still complaining of shortness of breath. Medical team had ordered a dose of I.V. Lasix to be given today morning. PAST MEDICAL HISTORY: Chronic kidney disease stage 3, solitary functioning right kidney; she reports that the left kidney was removed because of recurrent infection and kidney stones. She denies any history of kidney cancer. History of thoracic aortic aneurysm, history of hepatic and renal cysts, hypertension, hyperlipidemia, history of CA of cervix. PAST SURGICAL HISTORY: Status post hysterectomy due to cervical cancer and status post left nephrectomy. ALLERGIES: No known drug allergies. FAMILY HISTORY: No significant family history of end-stage renal disease. SOCIAL HISTORY: Patient lives alone. She denies any alcohol abuse or recreational drug use. REVIEW OF SYSTEMS: CONSTITUTIONAL: Patient had fevers and chills on arrival. She denies any fevers and chills at this time. EYES: She denies any blurry vision, double vision. ENT: She denies any dysphagia, odynophagia. CARDIOVASCULAR: She reports palpitations and atrial fibrillation. RESPIRATORY: She reports shortness of breath. GI: She reports nausea and decreased appetite. GENITOURINARY: She reports dysuria. MUSCULOSKELETAL: She denies any muscle aches and pains. SKIN: Denies any rashes or ulcers. HEMATOLOGICAL/ONCOLOGICAL: She denies any easy bleeding or bruising. LINE UP WORKER: She denies any strokes or seizures. All other review of systems is negative. PHYSICAL EXAMINATION: GENERAL: Patient is awake, alert, oriented x3, lying in bed, mild respiratory distress. VITAL SIGNS: Temperature 99 degrees Fahrenheit at this time, blood pressure 138/92, pulse 108, respiratory rate 20, saturating 89% on nasal cannula at 2 liters. HEAD/NECK: Extraocular muscles intact. Pupils equally round and reactive to light. Mucous membranes are moist. Neck is supple. Moderately elevated JVD is noted. CARDIOVASCULAR: S1, S2, irregular rate. Tachycardia is noted. 1+ edema of the bilateral lower extremities. RESPIRATORY: Decreased breath sounds at the bases with inspiratory crackles at the bases. ABDOMEN: Soft, right-sided abdominal pain on deep palpation. No CVA tenderness is noted. GENITOURINARY: Bladder is not palpable. MUSCULOSKELETAL: No clubbing or cyanosis. Pulses are 2+. LINE UP WORKER: No focal deficit. Power is 5/5 in all extremities. LABORATORY REVIEW: CBC showed WBC 25.8, hemoglobin 11.7, platelets 158,000. Patient had 13 band neutrophils yesterday. INR 1.1 on 06/04/2021. Urinalysis done yesterday showed it was turbid urine, 3+ blood, positive nitrates, 3+ leukocyte esterase, too numerous to count wbc. BMP done today morning showed sodium 140, potassium 4.4, chloride 113, bicarb 21, BUN 38, creatinine 1.8. BNP 15, 645. MICROBIOLOGY: Blood cultures prelim are 2/2 positive for gram negative rods. IMAGING: A chest x-ray done today morning showed right hilar infiltrate or atelectasis since the prior study. CAT scan of the abdomen and pelvis done yesterday showed air bronchograms, infiltrate in the medial basal segment of the left lower lobe, cardiomegaly, multiple cysts in the liver, bilateral adrenal hyperplasia, left nephrectomy, hysterectomy, right renal hypertrophy and moderate right-sided hydroureteronephrosis with distal right ureter which can be traced up to the origin of the right external iliac artery. Increased of the colon consistent with constipation and there was anasarca. CURRENT INPATIENT MEDICATIONS: Patient's medications were all reviewed by myself. She was originally on Ceftriaxone, but it has been changed to I.V. Zosyn now. She was getting I.V. Vancomycin, which has been stopped. Albuterol p.r.n., Eliquis 2.5 mg p.o. twice a day. Lasix 40 mg I.V. times one dose was ordered. She is on Metoprolol 25 mg p.o. every 6 hours and Pravastatin 40 mg p.o. daily. ASSESSMENT AND PLAN: 1. Severe sepsis secondary to right-sided pyelonephritis: Patient has right-sided obstruction. Continue current dose of Zosyn. Vancomycin has been held because of worsening renal function. Patient has gram negative maico bacteremia and most likely urine. Urine culture is still pending. 2. Acute pyelonephritis of the solitary functioning right kidney along with right-sided hydronephrosis: Plan of care was already discussed with the hospitalist, Dr. London and I recommended getting urology on board for right-sided retrograde pyelogram and stranding of the ureter. If that is not possible, then patient would need right-sided percutaneous nephrostomy to relieve the obstruction. 3. Acute decompensated congestive heart failure: It is secondary to aggressive diuresis and right-sided solitary functioning ureteral obstruction. Patient was already given Lasix 40 mg I.V. Stop further I.V. fluid hydration. I would avoid giving I.V. Lasix at this time since patient is already obstructed and I hope that once we relieve the obstruction, she is going to have post obstructive diuresis. 4. Atrial fibrillation with rapid ventricular rate: It is most likely triggered by infection and sepsis. Patient is already on Eliquis and Metoprolol. The rest of the management is as per medical team. Thank you for involving me in the care of this patient. I shall be happy to follow this patient along with you tomorrow morning.
[2021-06-06 16:00] VITALS: BP 168/86
[2021-06-06] MEDS ORDERED: CONRAY-60 60% 50ML VIAL (Q9961) As Ordered ONE (16:53)
[2021-06-06] MEDS ORDERED: dexameTHASONE 4 MG/ML 1ML VIAL (J1100 PER 1MG) As Ordered ONE (17:13)
[2021-06-06] MEDS ORDERED: KETOROLAC 60MG 2ML VIAL As Ordered ONE (17:13)
[2021-06-06] MEDS ORDERED: propofoL 200 MG/20 ML VIAL As Ordered ONE (17:13)
[2021-06-06] MEDS ORDERED: ONDANSETRON 4MG/2ML VIAL As Ordered ONE (17:13)
[2021-06-06] MEDS ORDERED: LIDOCAINE 2% 100MG/5ML SDV (FOR ANES.) As Ordered ONE (17:13)
[2021-06-06] MEDS ORDERED: MIDAZOLAM INJ 2MG/2ML VIAL (J2250 PER 1MG) As Ordered ONE (17:14)
[2021-06-06] MEDS ORDERED: fentaNYL 100 MCG/2 ML INJECTION (J3010) As Ordered ONE (17:14)
--- NOTE | 2021-06-06 19:08 | REP ---
INDICATION: RIGHT STENT PLACEMENT. COMPARISON: CT 06/05/2021. TECHNIQUE: Two images from C-arm fluoroscopy provided to Dr. Dasilva of the urology division. FINDINGS: Initial image shows multiple bilateral peripheral pelvic surgical clips in this patient with history of the cervical carcinoma. She also has a history of left nephrectomy. The 2nd image shows catheter with wire and the catheter extending into the right collecting system with moderate hydronephrosis of the right collecting system as well as an extrarenal pelvis. Wire is maintained within the catheter for this image and so distal coil has not yet been formed. There is some contrast in the ureter and bladder as well on this 2nd image. IMPRESSION: 1. Status post placement of a right ureteral stent. 2nd image shows the proximal coil in a distended renal pelvis and with a wire still coursing through the stent to just below its coil. 2. Fluoroscopy time: 25 seconds. <Electronically signed by Magdiel Monique > 06/06/21 [id number]
--- NOTE | 2021-06-06 19:24 | ROOPDOC ---
[facility] Report Of Operation Report of Operation DATE OF PROCEDURE: 06/06/21 PREPROCEDURE DIAGNOSES: right hydronephrosis and urosepsis POSTPROCEDURE DIAGNOSES: same PROCEDURE PERFORMED: cystoscopy, right retrograde pyelogram and ureteral stent insertion SURGEON: REDDY MOTTA MD LIME HIDE INSPECTOR: NONE ANESTHESIA: GENERAL LMA ESTIMATED BLOOD LOSS: Approximately 1 mL. COMPLICATIONS: NONE REMARKS: J HOOKING OF RIGHT UPJ FINDINGS: DEBRIS AFTER STENT SPECIMENS REMOVED: URINE CULTURE PROCEDURE NOTE: 80 YO WOMEN WITH H/O SOLITARY RIGHT KIDNEY AND LEFT NEPHRECTOMY FOR RENAL OBSTRUCTION MANY YEARS AGO NOW PRESENTED TO THE ER IN AFIB AND DISCOVERED TO HAVE VALERIANO WITH + BLOOD AND URINE CULTURES. CT REVEALED RIGHT HYDRONEPHROSIS AND CONSULTED. DESCRIPTION OF PROCEDURE: PATIENT WAS TAKEN TO THE OR AND TIME OUT AND CONSENT VERIFIED. SHE RECEIVED ZOSYN AT 3PM. SHE UNDERWENT GENERAL ANESTHESIA WITH LMA. WAS PLACED IN THE DORSOLITHOTOMY POSITION AND PREPPED AND DRAPED IN THE USUAL STERILE FASHION. A 21 FR CYSTOSCOPE WAS INTRODUCED INTO THE URETHRA AND BLADDER, WHICH WAS ERYTHEMATOUS CONSISTENT WITH CYSTITIS. THE WAS ALSO SOME DEBRIS OVER THE RIGHT UO. THE LEFT WAS NOT SEEN NOR EFFLUXED C/W PATIENT PREVIOUS LEFT NEPHRECTOMY. A 5 FR OPEN CATHETER WAS INTRODUCED INTO THE RIGHT URETERAL ORIFICE AND RETROGRADE PYELOGRAM DEMONSTRATED A TORTUOUS UPJ AND MODERATE HYDRONEPHROSIS. A 6 FR URETERAL STENT WAS INSERTED INTO THE KIDNEY AND GOOD COIL LEFT IN THE BLADDER. THERE WAS DEBRIS RELEASED SO A NEW URINE CULTURE WAS COLLECTED AND SENT. THE BLADDER WAS DRAINED AND A 16 FR BLANCO CATHETER INSERTED FOR URINE OUTPUT MONITORING FOR CHF AND A FIB. REDDY MOTTA M.D. Jun 06, 2021 19:24
[2021-06-06] MEDS ORDERED: ACETAMINOPHEN TAB 650MG DOSE (2X325MG) PO PRN (19:35)
[2021-06-06] MEDS ORDERED: ONDANSETRON 4MG/2ML VIAL IV PRN (19:35)
[2021-06-06] MEDS ORDERED: LR 1,000 ML IV SCH (19:35)
[2021-06-06] MEDS ORDERED: fentaNYL 100 MCG/2 ML INJECTION (J3010) IV PRN (19:35)
[2021-06-06 20:01] VITALS: BP 164/91
[2021-06-06 21:46] LABS: ALBUMIN 2.8 GM/DL (3.2-5.2); CALCIUM LEVEL 9.4 MG/DL (8.8-10.2); CREATININE FOR GFR 1.56 MG/DL (0.55-1.30); PHOSPHORUS LEVEL 3.3 MG/DL (2.5-4.9)
[2021-06-07] VITALS (9 sets, daily range): BP systolic 148–180; BP diastolic 87–100
[2021-06-07] MEDS: PIPERACILLIN/TAZOBACTAM SOD 3.375 GM in D5W MINI-BAG PLUS 50 ML IV SCH (01:43)
[2021-06-07] MEDS: METOPROLOL TART 25 MG TABLET PO SCH (05:04)
[2021-06-07 05:32] LABS: BASO % 0.2 % (0.0-1.0); HEMATOCRIT 37.6 % (36.0-47.0); HEMOGLOBIN 12.5 g/dl (12.0-15.5); LYMPH # 0.5 10^3/uL (1.5-5.0); LYMPH % 2.4 % (24.0-44.0); MEAN CORPUSCULAR HEMOGLOBIN 30.4 pg (27.0-33.0); MEAN CORPUSCULAR HGB CONC 33.2 g/dl (32.0-36.5); MEAN CORPUSCULAR VOLUME 91.5 fl (80.0-96.0); MONO # 0.4 10^3/uL (0.0-0.8); MONO % 2.1 % (2.0-8.0); NEUTROPHILS # 17.4 10^3/uL (1.5-8.5); NEUTROPHILS % 93.6 % (36.0-66.0); PLATELET COUNT, AUTOMATED 168 10^3/uL (150-450); RED BLOOD COUNT 4.11 10^6/uL (4.00-5.40); WHITE BLOOD COUNT 18.6 10^3/uL (4.0-10.0)
[2021-06-07 05:53] LABS: CALCIUM LEVEL 9.3 MG/DL (8.8-10.2); CREATININE FOR GFR 1.35 MG/DL (0.55-1.30); GLOMERULAR FILTRATION RATE 40.2 (>32); POTASSIUM SERUM 3.9 MEQ/L (3.5-5.1)
[2021-06-07] MEDS: LACTOBACILLUS ACIDOPHILUS CAP (BACID) PO SCH ×3 (08:40→17:19)
[2021-06-07] MEDS: APIXABAN 2.5 MG TAB (ELIQUIS) PO SCH ×2 (08:40→21:17)
[2021-06-07] MEDS: PRAVASTATIN 20 MG TAB PO SCH (08:40)
--- NOTE | 2021-06-07 08:40 | IPNPDOC ---
Text Note Date of Service The patient was seen on 06/06/21. NOTE Subjective: -NAD, currently without pain Objective: VITAL SIGNS: See below GENERAL APPEARANCE: NAD, conversational, AOx3 HEENT: NCAT, EOMI, moist mucous membranes CARDIOVASCULAR: Irregularly irregular and tachycardic LUNGS: Scattered wheezing but improved from yesterday evening, otherwise no crackles ABDOMEN:Normoactive bowel sounds, soft nontender on my examination without rebound or guarding EXTREMITIES: Trace edema bilateral lower extremity edema. WWP Psych: Aox3 LABORATORY DATA: Reviewed WBC 25.8 Hgb 11.7 platelets 158 na 140 K 4.4 Cr 1.81 pBNP 37845 IMAGING: Gall bladder US: Liver: There are few scattered hepatic cysts. Gallbladder: The gallbladder is partially distended. There is a 4 mm gallbladder polyp. There are no gallstones. Common bile duct: The common bile duct measures 3 mm. Pancreas: Visualized pancreas is unremarkable. Right kidney: The right kidney measures 13.1 cm in greatest sagittal dimension. There is moderate right hydronephrosis. There is a simple cyst extending from the right upper pole measuring 4.4 cm. IMPRESSION: 1. There is no biliary duct dilatation. 2. 4 mm gallbladder polyp. A repeat exam in 6 months is recommended to document for stability. 3. Moderate right hydronephrosis of uncertain etiology. CT A/P: Lungs: Bibasilar atelectasis. Air bronchograms demonstrated in an infiltrate in the medial basal segment of the left lower lobe. Clinical correlation to exclude focus of pneumonitis suggested. Pleural spaces: Small bilateral pleural effusions. Heart: Cardiomegaly. Liver: Multiple hypodensities demonstrated in the liver measuring up to 1.6 cm in segment 2. Findings likely correspond to the cysts demonstrated on prior ultrasound. Confirmation with hepatic MRI could be obtained if further imaging is desired. Gallbladder and bile ducts: Normal. No calcified stones. No ductal dilation. Pancreas: Normal. No ductal dilation. Spleen: Normal. No splenomegaly. Adrenal glands: There is bilateral adrenal hyperplasia. Kidneys and ureters: Simple cyst upper pole right kidney measures 3.9 cm. No follow-up suggested. There has been an apparent left nephrectomy with absence of the kidney in the left renal fossa or pelvis in this patient with no reported history of nephrectomy. Typically expected postoperative changes demonstrated. No mass demonstrated. There is moderate right hydroureteronephrosis with the distal right ureter traced to the level of the origin of the right external iliac artery below which still ureter is not clearly visualized. Uncertain as to whether there is obstructive regional adenopathy or other obstructive mass resulting in the hydronephrosis. Further evaluation with postcontrast CT urography suggested if clinically desired. There is right renal hypertrophy with sagittal dimensions of the right kidney measuring 13 cm. Stomach and bowel: There is poor distention and thickening of the hay of the stomach most likely related to incomplete distention with oral contrast media or water. If there is any suspicion for infiltrative pathology further evaluation suggested. There is increased feces throughout the colon consistent with constipation. Mild diverticulosis is present in the left colon. No diverticulitis. Appendix: No evidence of appendicitis. Intraperitoneal space: There is a small amount of free intraperitoneal fluid present. Vasculature: The aortoiliac vessels demonstrate moderate atherosclerotic calcification. Lymph nodes: Unremarkable. No enlarged lymph nodes. Urinary bladder: Unremarkable as visualized. Reproductive: There has been a hysterectomy. Bones/joints: The spine demonstrates mild degenerative changes. Mild central spinal stenosis L2-L3, moderate central spinal stenosis L3-L4 and moderate to severe central spinal stenosis L4-L5. Bulging annulus L5-S1. Soft tissues: There is mild soft tissue edema demonstrated in the abdominal wall, flanks and buttock regions consistent with anasarca. IMPRESSION: 1. Air bronchograms demonstrated in an infiltrate in the medial basal segment of the left lower lobe. Clinical correlation to exclude focus of pneumonitis suggested. 2. Cardiomegaly. 3. Multiple hypodensities demonstrated in the liver. Findings likely correspond to the cysts demonstrated on prior ultrasound. Confirmation with hepatic MRI could be obtained if further imaging is desired. 4. There is bilateral adrenal hyperplasia. 5. There has been an apparent left nephrectomy with absence of the kidney in the left renal fossa or pelvis in this patient with no reported history of nephrectomy. Typically expected postoperative changes demonstrated. No mass demonstrated. 6. There has been a hysterectomy. 7. Right renal hypertrophy. There is moderate right hydroureteronephrosis with the distal right ureter traced to the level of the origin of the right external iliac artery below which still ureter is not clearly visualized. Uncertain as to whether there is obstructive regional adenopathy or other obstructive mass resulting in the hydronephrosis. Further evaluation with postcontrast CT urography suggested if clinically desired. 8. There is a small amount of free intraperitoneal fluid present. 9. There is increased feces throughout the colon consistent with constipation. 10. Anasarca. 11. Mild diverticulosis is present in the left colon. No diverticulitis. 06/06 CXR: Lungs: Slight left base clearing with better delineation of the left hemidiaphragm. Question of minimal right infrahilar infiltrate or atelectasis since the prior study. Pleural spaces: Unremarkable. No pleural effusion. No pneumothorax. Heart/Mediastinum: The heart and mediastinum are unchanged. Bones/joints: Unremarkable. IMPRESSION: 1. Slight left base clearing since 06/04/2021. 2. Question of minimal right infrahilar infiltrate or atelectasis since the prior study. MICROBIOLOGY: Please see below. ASSESSMENT: 80-year-old female presents with new onset A. fib with RVR cystitis and abnormal liver function test with complaints of "gas pain" in the epigastric area. New onset atrial fibrillation with rapid ventricle response -s/p ED metop and amiodarone x 1 dose in the ED -Was started on eliquis renally dosed bid, will continue -TTE pending -s/p IVF -negative troponin, EKG without acute ST changes Sepsis 2/ UTI: fever, tachycardia, leukocytosis with bandemia and lactic acidosis with +++UA -Positive UA, with pending urine culture, to follow up speciation and sensitivities -f/u BCx, GNRs -s/p 3L IVF -Has a history of mrsa and enteroccocus and for now will continue renally dosed by pharmacy vancomycin and piptazo (switched from ceftriaxone until speciation) -MRSA PCR UTI: --Positive UA, with pending urine culture, to follow up speciation and sensiti vities -f/u BCx, growing GNRs. -repeat BCx for recovered of clearance of bacteremia -antibiotics as noted above Cholestatic LFT abnormalities with elevated alk phos bilirubin -Ultrasound gallbladder showed a polyp but without stones of biliary duct dilatation -elevated GGT -repeat LFTs improved, will monitor -no noted complaints or examination findings at this moment History of ascending thoracic aortic aneurysm 4.1cm, last noted imaging was in 2014 -Pending TTE -Normotensive currently -Not able to get CTA at this time with VALERIANO on CKD VALERIANO on CKD with a history of remote L nephrectomy and history of prior kidney stones -Gallbladder US noted R moderate hydro and CT A/P noted hydro with potential focal obstructing adenopathy vs. mass effect? Consulted nephrology and urology. NPO after breakfast today per my discussion with urology. -s/p fluids, repeat BMP -strict I/Os -holding ACEi among the antihypertensives while septic Hypertension: holding all meds while septic -holding benazepril, amlodipine and clonidine SOB, wheezing and mild hypoxemia: likely CHF i/s/o fluid resuscitation for sepsis -s/p lasix 40 IV overnight with improvement in symptoms -supplemental O2 to goal >90% -TTE pending Dyslipidemia -Continue pravastatin CODE STATUS: DNR/DNI Diet: Renal diet, NPO after breakfast DVT prophylaxis: On Eliquis for new onset A. fib VS,Fishbone, I+O VS, Fishbone, I+O Laboratory Tests 06/05/21 17:42 06/06/21 05:23 Vital Signs Date Time Temp Pulse Resp B/P (MAP) Pulse Ox O2 Delivery O2 Flow Rate FiO2 06/06/21 04:42 98.1 108 20 128/78 (95) 95 Nasal Cannula 2.0 06/05/21 20:00 88 I&O- Last 24 Hours up to 6 AM 06/06/21 06:00 Intake Total 1960 ml Output Total 900 ml Balance 1060 ml NICOLASA WEATHERS MD Jun 06, 2021 08:06
[2021-06-07] MEDS: cefTRIAXone SOD 2 GM in D5W MINI-BAG PLUS 50 ML IV SCH (08:42)
[2021-06-07] MEDS ORDERED: METOPROLOL 5 MG/5 ML VIAL IV STA (12:40)
--- NOTE | 2021-06-07 13:06 | IPNPDOC ---
Text Note Date of Service The patient was seen on 06/07/21. NOTE Subjective: -Confused a bit still this morning but certainly improved from yesterday evening when I saw her. -Urology placed a ureteral stent with good effect and robust urine output thereafter -Still tachycardic in RVR Objective: VITAL SIGNS: See below GENERAL APPEARANCE: NAD, conversational, AOx3 HEENT: NCAT, EOMI, moist mucous membranes CARDIOVASCULAR: Irregularly irregular and tachycardic LUNGS: Some wheezing close to bilateral apices, otherwise clear ABDOMEN:Normoactive bowel sounds, soft nontender on my examination without rebound or guarding EXTREMITIES: Trace edema bilateral lower extremity edema. WWP Psych: Aox3 LABORATORY DATA: Reviewed WBC downtrended to 18.6 hgb 12.5 platelets 168 na 142 K 3.9 Cr downtrended to 1.35 MICROBIOLOGY: 06/04 UCx and 06/04 BCx growing pansensitive E.coli 06/06 UCx and BCx - negative to date IMAGING: Gall bladder US: Liver: There are few scattered hepatic cysts. Gallbladder: The gallbladder is partially distended. There is a 4 mm gallbladder polyp. There are no gallstones. Common bile duct: The common bile duct measures 3 mm. Pancreas: Visualized pancreas is unremarkable. Right kidney: The right kidney measures 13.1 cm in greatest sagittal dimension. There is moderate right hydronephrosis. There is a simple cyst extending from the right upper pole measuring 4.4 cm. IMPRESSION: 1. There is no biliary duct dilatation. 2. 4 mm gallbladder polyp. A repeat exam in 6 months is recommended to document for stability. 3. Moderate right hydronephrosis of uncertain etiology. ASSESSMENT: 80-year-old W who was admitted with new onset A. fib with RVR, sepsis 2/2 obstructive pyelonephritis and VALERIANO on CKD. New onset atrial fibrillation with rapid ventricle response -s/p ED metop and amiodarone x 1 dose in the ED -Was started on eliquis renally dosed bid, will continue -TTE pending -s/p IVF -negative troponin, EKG without acute ST changes -will increase metop to 50Q6H Sepsis 2/2 pyelonephritis: fever, tachycardia, leukocytosis with bandemia and lactic acidosis with +++UA -UCx and BCx grew pansensitive Ecoli -f/u 06/06 BCx and UCx -s/p 3L IVF -De-escalated to ceftriaxone this morning after speciation and sensitivities Pyelonephritis: -UCx and BCx grew pansensitive Ecoli -f/u 06/06 BCx and UCx -s/p IVF -De-escalated to ceftriaxone this morning after speciation and sensitivities Hypoxemia: i/2/o Afib with RVR and also s/p aggressive fluids for sepsis with obstructive uropathy -urology was consulted and placed ureteral stent with good effect now with robust output, will monitor fluid status and hypoxemia and expect it to improve -strict I/Os -has a pending TTE read Cholestatic LFT abnormalities with elevated alk phos bilirubin i//s/o of sepsis, now resolved. -Ultrasound gallbladder showed a polyp but without stones of biliary duct dilatation -repeat LFTs normalized -no noted complaints or concerning examination findings History of ascending thoracic aortic aneurysm 4.1cm, last noted imaging was in 2014 -Pending TTE read -Normotensive currently without pain complaints VALERIANO on CKD with a history of remote L nephrectomy with obstructive uropathy and R hydronephrosis -Gallbladder US noted R moderate hydro, confirmed by CT A/P with unclear source of obstruction enlarged nodes vs. mass, will require either MRI or CT with contrast when renal function improves. -s/p R ureteral stent placement on 06/07 by urology with prompt robust output and Cr now downtrending -s/p fluids -strict I/Os -holding ACEi among the antihypertensives Hypertension: was holding all meds while septic -holding benazepril, amlodipine and clonidine Dyslipidemia -on pravastatin CODE STATUS: DNR/DNI Diet: Renal diet DVT prophylaxis: On Eliquis for new onset A. fib VS,Fishbone, I+O VS, Fishbone, I+O Laboratory Tests 06/06/21 21:05 06/07/21 05:07 Vital Signs Date Time Temp Pulse Resp B/P (MAP) Pulse Ox O2 Delivery O2 Flow Rate FiO2 06/07/21 08:00 98.7 113 19 95 Nasal Cannula 3.0 06/07/21 08:00 180/92 (121) 06/05/21 20:00 88 I&O- Last 24 Hours up to 6 AM 06/07/21 06:00 Intake Total 590 ml Output Total 1450 ml Balance -860 ml KUPAKUWANA-JENNIFER,NICOLASA V. MD Jun 07, 2021 08:40
--- NOTE | 2021-06-07 13:09 | IPN ---
PROGRESS NOTE DATE: 06/07/2021 SUBJECTIVE: The patient was seen and examined at the bedside today morning. She got right-sided ureteral stent placed by urology yesterday and she had very good urine output after that. Cultures including blood and urine cultures are all growing kerr sensitive E. coli. Renal function is improving. Shortness of breath is also significantly better today as compared with yesterday. OBJECTIVE: Vital signs: Temperature is 98.7 degrees Fahrenheit, blood pressure is 148/98, pulse is 112, respiratory rate of 18, saturating 95% on nasal canula at 3 liters. Intake and output recorded as 2.1 liters yesterday, 700 ml so far today since overnight. Weight in the bed scale is not available. PHYSICAL EXAMINATION: General: The patient is awake, alert and oriented x 2, lying in bed in no apparent distress. Head and neck examination: Extraocular muscles are intact. Pupils equally round and reactive to light. Mucous membranes are moist. Neck is supple. There is no jugular venous distention (JVD). Cardiovascular: S1, S2 regular rate. No edema in the bilateral lower extremities. Respiratory: Chest is clear to auscultation bilaterally. Bilateral equal air entry. No rales or rhonchi. Abdomen is soft. Positive bowel sounds. Nontender. No organomegaly. Musculoskeletal: No clubbing or cyanosis. Pulses are 2+. COGNOS: No focal deficits. Power is 5/5 in all extremities. LABORATORY REVIEW: Complete blood count (CBC) showed a WBC 18.6, it is significantly better from yesterday, it was 25.8 yesterday, hemoglobin is 12.5, platelets are 168. Basic metabolic panel (BMP) showed sodium 142, potassium 3.9, chloride 110, bicarbonate 22, BUN 37, creatinine is 1.3, it was 1.8 yesterday morning. Calcium is 9.3. MICROBIOLOGY: Urine culture and 2 of the blood cultures are all growing kerr sensitive E. coli. CURRENT INPATIENT MEDICATIONS: The patient's medications were all reviewed by myself. IV Zosyn has been stopped. The patient has been started on ceftriaxone 2 gm IV daily. She continues to be on Eliquis. She has been started on Cardizem 30 mg by mouth q 6 hours. Metoprolol has been stopped. Pravastatin is 40 mg by mouth daily. ASSESSMENT: 1. Acute renal failure secondary to right-sided hydronephrosis. The patient got right-sided ureteral stent placed yesterday. She has a very good urine output. Renal function is improving. 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 2. Sepsis secondary to right-sided pyelonephritis. The patient is growing E. coli in the blood and E. coli in the urine cultures, which is sensitive to ceftriaxone. Ceftriaxone has been started at 2 gm IV daily. Vancomycin and Zosyn have been stopped. She is afebrile since yesterday. 3. Atrial fibrillation with rapid ventricular rate. The patient is already on Eliquis. Metoprolol has been stopped by the medical team. She has been started on Cardizem. The rest of the management is as per medical service.
[2021-06-07] MEDS: METOPROLOL TART 50 MG TAB PO SCH ×2 (13:34→17:19)
--- NOTE | 2021-06-07 14:59 | CR ---
CONSULTATION DATE: 06/06/2021 REASON FOR CONSULTATION: I was asked to consult by Dr. Sal Dasilva and Dr. London for evaluation of sepsis of urinary origin with right-sided hydronephrosis. HISTORY OF PRESENT ILLNESS: Mrs. Ribera is an 80-year-old female who presented to the hospital with a three-day history of worsening shortness of breath and abdominal discomfort. The patient had taken some Maalox without any improvement. She felt very weak and was having substernal chest pain. The patient denied any nausea, vomiting, fevers, chills, cough or diarrhea. She had no constipation. She did not have any dysuria, hematuria or frequency. The patient lives alone and she is still very active, drives herself and dances. The patient was brought into the emergency room, was noted to be in atrial fibrillation with rapid ventricular response. She was given IV Lopressor. She was hypotensive. Blood cultures were obtained, were positive for gram negative bacteremia and urine cultures were also positive for gram negative rods. The patient received initially IV Rocephin and then switched to IV Zosyn. PAST MEDICAL HISTORY: 1. 4.1 cm ascending aortic aneurysm. 2. Hepatic and renal cyst. 3. History of hypertension. 4. Dyslipidemia. 5. Cervical cancer. 6. Kidney stone with obstruction on the left side, status post nephrectomy. 7. History of MRSA, E. coli and E. faecalis on urine cultures in the past. PAST SURGICAL HISTORY: 1. Hysterectomy for cervical cancer. 2. Left nephrectomy due to obstructive stone. SOCIAL HISTORY: She lives alone with a cat. 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 Her brother is also her healthcare proxy. She is retired from [employer]. FAMILY HISTORY: Mother in her 90s. REVIEW OF SYSTEMS: She complains of some shortness of breath, no nausea, vomiting, diarrhea, fever or chills. She is not sure what was the reason she came to the hospital. Temperature is 98.1, pulse 119, irregular, respirations 18, blood pressure 140/86, O2 sat 93% on three liters nasal cannula. Temperature on admission was 102.5 on 06/04. LABORATORY DATA: White count 25.8, yesterday was 27.6, hemoglobin 11.7, hematocrit 34.9, platelets 158, 93% neutrophils, 2% lymphocytes, 2% monocytes. Sodium 140, potassium 4.4, chloride 113, bicarb 21, BUN 38, creatinine 1.81, glucose 109, calcium 8.9, bilirubin 0.8, GGT 87, AST 39, ALT 31, alk phos 102. BNP 15,645, albumin 3. Urine had too many white cells, 169 red cells, PT 14.5, PTT 26.2. Blood cultures: Gram negative rods. Urine cultures: Gram negative rods. Susceptibility is pending. Respiratory panel are pending. Chest x-ray done on 06/06 showed slight basal, left base clearing since 06/04 with questionable right infrahilar infiltrate. CT, abdomen and pelvis: Bibasilar atelectasis, possible infiltrate in the left lower lobe, rule out pneumonitis, small, bibasilar effusion. The liver with hypodensity measuring 1.6 cm. Right kidney measuring 13 cm. Moderate right hydroureter or hydronephrosis. PHYSICAL EXAMINATION: General: She is frail female in no acute distress. Vital Signs: Temperature is currently 98.1. Heart: Normal S1, S2, regular, Lungs: Decreased breath sounds at the bases, especially crackles at the right side. Abdomen: Soft, nontender, no hepatosplenomegaly. Back: No CVA tenderness. Left lower quadrant scar from previous nephrectomy. Extremities: No clubbing, cyanosis, +1 pitting edema bilaterally. Motor exam normal. Neurologic: Intact. Patient alert and oriented x3. Head and ENT: Two liters nasal cannula. Neck: Supple, no JVD. IMPRESSION: This is an 80-year-old female in very good health with previous history of left nephrectomy and thoracic aneurysm who presented with sepsis from right-sided pyelonephritis with gram negative bacteremia and hydronephrosis. The patient is going to the operating room for a stent. She has developed atrial fibrillation with mild congestive heart failure and has required oxygen and Lasix. She probably needs to be diuresed some more after surgery. The patient has received IV Zosyn at 3 p.m. in the afternoon before surgery. PLAN: Continue with IV Zosyn 3.375 gm q.6 hours for gram negative sepsis. Monitor fluid status. Consider IV Lasix again tonight. The patient seems more short of breath. Continue with probiotics one p.o. with meals. MEDICATIONS: 1. Apixaban 2.5 mg p.o. b.i.d. 2. Zosyn 3.375 gm IV q.6 hours. Pravachol 40 mg p.o. daily. 3. Probiotics one tablet p.o. with meals. 4. Metoprolol 25 mg p.o. q.6 hours. ALLERGIES: No known drug allergies. The case has been discussed with Dr. London and Dr. Dasilva.
[2021-06-07] MEDS ORDERED: FUROSEMIDE 40MG/4ML VIAL (J1940) IV ONE (16:00)
--- NOTE | 2021-06-07 16:40 | IPNPDOC ---
Subjective Review oF Systems Chief Complaint The patient is a 80-year-old female POD 1 s/p right ureteral stent insertion for hydro and VALERIANO secondary to solitary kidney. Pt has had goo response with decreased WBC and Cr level. Continue abx and Vilchis for UO monitoring Can f/u with [facility] urology as an outpatient and stent management Objective Vital Signs/I&O Vital Signs Date Time Temp Pulse Resp B/P (MAP) Pulse Ox O2 Delivery O2 Flow Rate FiO2 06/07/21 16:00 3.0 06/07/21 13:34 112 134/104 06/07/21 12:00 98.8 19 92 Nasal Cannula 06/05/21 20:00 88 I&O- Last 24 Hours up to 6 AM 06/07/21 06:00 Intake Total 590 ml Output Total 1450 ml Balance -860 ml Laboratory Data Labs 24H Laboratory Tests 2 06/06/21 21:05: Anion Gap 8, Glomerular Filtration Rate 34.0, Calcium Level 9.4, Phosphorus Level 3.3, Albumin 2.8L 06/07/21 05:07: Anion Gap 10, Glomerular Filtration Rate 40.2, Calcium Level 9.3, Immature Granulocyte % (Auto) 1.7, Neutrophils (%) (Auto) 93.6H, Lymphocytes (%) (Auto) 2.4L, Monocytes (%) (Auto) 2.1, Eosinophils (%) (Auto) 0.0, Basophils (%) (Auto) 0.2, Neutrophils # (Auto) 17.4H, Lymphocytes # (Auto) 0.5L, Monocytes # (Auto) 0.4, Eosinophils # (Auto) 0.0, Basophils # (Auto) 0.0, Nucleated Red Blood Cells % (auto) 0.0 CBC/BMP Laboratory Tests 06/06/21 21:05 06/07/21 05:07 Microbiology Microbiology 06/06/21 Urine Culture, Received Pending 06/06/21 Blood Culture - Preliminary, Resulted No growth after 24 hours . All specim... 06/05/21 Urine Culture - Final, Complete Escherichia Coli 06/04/21 Respiratory Virus Panel (PCR) ([facility]) - Final, Complete 06/04/21 Blood Culture - Final, Complete Escherichia Coli 06/04/21 Blood Culture - Final, Complete Escherichia Coli Assessment/Plan Date Seen The patient was seen on 06/07/21. Plan/VTE VTE Prophylaxis Ordered?: Yes Plan/Urinary Catheter Reason for insertion/continuin: Critical Pt monitoring Plan Continue antibiotics F/U urology as an outpatient for stent management REDDY MOTTA M.D. Jun 07, 2021 16:40
[2021-06-08] VITALS (7 sets, daily range): BP systolic 145–186; BP diastolic 61–103
[2021-06-08] MEDS: METOPROLOL TART 50 MG TAB PO SCH ×4 (00:20→17:37)
[2021-06-08 05:21] LABS: BASO % 0.2 % (0.0-1.0); EOS % 0.2 % (0.0-3.0); HEMATOCRIT 35.1 % (36.0-47.0); HEMOGLOBIN 11.8 g/dl (12.0-15.5); LYMPH % 5.4 % (24.0-44.0); MEAN CORPUSCULAR HEMOGLOBIN 30.2 pg (27.0-33.0); MEAN CORPUSCULAR HGB CONC 33.6 g/dl (32.0-36.5); MEAN CORPUSCULAR VOLUME 89.8 fl (80.0-96.0); MONO # 0.6 10^3/uL (0.0-0.8); MONO % 3.3 % (2.0-8.0); NEUTROPHILS # 16.5 10^3/uL (1.5-8.5); NEUTROPHILS % 89.7 % (36.0-66.0); PLATELET COUNT, AUTOMATED 212 10^3/uL (150-450); RED BLOOD COUNT 3.91 10^6/uL (4.00-5.40); WHITE BLOOD COUNT 18.4 10^3/uL (4.0-10.0)
[2021-06-08 05:41] LABS: BLOOD UREA NITROGEN 29 MG/DL (7-18); CARBON DIOXIDE LEVEL 26 MEQ/L (21-32); CHLORIDE LEVEL 111 MEQ/L (98-107); CREATININE FOR GFR 0.94 MG/DL (0.55-1.30); GLOMERULAR FILTRATION RATE > 60.0 (>32); GLUCOSE, FASTING 95 MG/DL (70-100); POTASSIUM SERUM 3.3 MEQ/L (3.5-5.1); SODIUM LEVEL 144 MEQ/L (136-145)
[2021-06-08] MEDS: cefTRIAXone SOD 2 GM in D5W MINI-BAG PLUS 50 ML IV SCH (08:44)
[2021-06-08] MEDS: APIXABAN 2.5 MG TAB (ELIQUIS) PO SCH ×2 (08:45→21:43)
[2021-06-08] MEDS: LACTOBACILLUS ACIDOPHILUS CAP (BACID) PO SCH ×3 (08:45→17:35)
[2021-06-08] MEDS: PRAVASTATIN 20 MG TAB PO SCH (08:45)
[2021-06-08] MEDS: FUROSEMIDE 40MG/4ML VIAL (J1940) IV SCH (08:46)
[2021-06-08] MEDS ORDERED: POTASSIUM CHLORIDE 10 MEQ SR TABLET PO ONE (09:00)
--- NOTE | 2021-06-08 10:03 | IPNPDOC ---
Subjective Review oF Systems Chief Complaint The patient is a 80-year-old female s/p cysto and right ureteral stent (solitary kidney) for VALERIANO and urosepsis. She responded with decreaes WBC to 18 k but has not dropped further while in appropriate abx Zosyn for E. Coli. Today increased wheezing possible fluid overload and being diuresed. She has a Vilchis with clear Urine output 1300 cc/12 hr Events since Last Encounter improvement in Cr and WBC stable Wheezing Objective Physical Examination ABDOMEN EXAM: Soft Vital Signs/I&O Vital Signs Date Time Temp Pulse Resp B/P (MAP) Pulse Ox O2 Delivery O2 Flow Rate FiO2 06/08/21 07:19 157/92 (113) 06/08/21 07:17 97.6 92 18 95 Nasal Cannula 3.0 06/05/21 20:00 88 I&O- Last 24 Hours up to 6 AM 06/08/21 06:00 Intake Total 360 ml Output Total 2500 ml Balance -2140 ml Laboratory Data Labs 24H Laboratory Tests 2 06/08/21 04:58: Immature Granulocyte % (Auto) 1.2, Neutrophils (%) (Auto) 89.7H, Lymphocytes (%) (Auto) 5.4L, Monocytes (%) (Auto) 3.3, Eosinophils (%) (Auto) 0.2, Basophils (%) (Auto) 0.2, Neutrophils # (Auto) 16.5H, Lymphocytes # (Auto) 1.0L, Monocytes # (Auto) 0.6, Eosinophils # (Auto) 0.0, Basophils # (Auto) 0.0, Nucleated Red Blood Cells % (auto) 0.0, Anion Gap 7L, Glomerular Filtration Rate > 60.0, Calcium Level 9.0 CBC/BMP Laboratory Tests 06/08/21 04:58 Microbiology Microbiology 06/06/21 Urine Culture - Final, Complete 06/06/21 Blood Culture - Preliminary, Resulted No Growth after 48 hours. All Specime... 06/05/21 Urine Culture - Final, Complete Escherichia Coli 06/04/21 Respiratory Virus Panel (PCR) ([facility]) - Final, Complete 06/04/21 Blood Culture - Final, Complete Escherichia Coli 06/04/21 Blood Culture - Final, Complete Escherichia Coli Assessment/Plan Date Seen The patient was seen on 06/08/21. Patient Summary 80 yo F Afib, CHF, VALERIANO, persisitnet leukocytosis despite abx for urosepsis and increased wheezing Plan/VTE VTE Prophylaxis Ordered?: Yes Plan/Urinary Catheter Reason for insertion/continuin: Critical Pt monitoring Plan continue abx repeat CXR r/o pneumonia REDDY MOTTA M.D. Jun 08, 2021 10:03
--- NOTE | 2021-06-08 11:15 | IPNPDOC ---
Text Note Date of Service The patient was seen on 06/08/21. NOTE Subjective: -Confusion is improving -RVR much improved after metop was uptitrated to 50Q6H Objective: VITAL SIGNS: See below GENERAL APPEARANCE: NAD, conversational, AOx3 HEENT: NCAT, EOMI, moist mucous membranes CARDIOVASCULAR: Irregularly irregular, no noted murmurs LUNGS: Some wheezing close to bilateral apices, otherwise clear ABDOMEN:Normoactive bowel sounds, soft nontender on my examination without rebound or guarding EXTREMITIES: 1+ edema bilateral lower extremity edema. [facility] LABORATORY DATA: Reviewed WBC 18.4 hgb 11.8 platelets 212 na 144 K 3.3 (repleted) Cr downtrended to 0.94 MICROBIOLOGY: 06/04 UCx and 06/04 BCx growing pansensitive E.coli 06/06 UCx and BCx - negative to date IMAGING: Gall bladder US: Liver: There are few scattered hepatic cysts. Gallbladder: The gallbladder is partially distended. There is a 4 mm gallbladder polyp. There are no gallstones. Common bile duct: The common bile duct measures 3 mm. Pancreas: Visualized pancreas is unremarkable. Right kidney: The right kidney measures 13.1 cm in greatest sagittal dimension. There is moderate right hydronephrosis. There is a simple cyst extending from the right upper pole measuring 4.4 cm. IMPRESSION: 1. There is no biliary duct dilatation. 2. 4 mm gallbladder polyp. A repeat exam in 6 months is recommended to document for stability. 3. Moderate right hydronephrosis of uncertain etiology. ASSESSMENT: 80-year-old W who was admitted with new onset A. fib with RVR, se psis 2/2 obstructive pyelonephritis and VALERIANO on CKD. New onset atrial fibrillation with rapid ventricle response i/s/o urosepsis 2/2 pyelonephritis with obstructive uropathy -Was started on eliquis renally dosed bid, will continue -TTE read pending -s/p IVF -negative troponin, EKG without acute ST changes -continue metop to 50Q6H Sepsis 2/2 pyelonephritis: fever, tachycardia, leukocytosis with bandemia and lactic acidosis with +++UA -UCx and BCx grew pansensitive Ecoli -f/u 06/06 BCx and UCx, NGTD -s/p 3L IVF -De-escalated to ceftriaxone after speciation and sensitivities Pyelonephritis: -UCx and BCx grew pansensitive Ecoli -f/u 06/06 BCx and UCx -s/p IVF -De-escalated to ceftriaxone after speciation and sensitivities Hypoxemia: i/2/o Afib with RVR and also s/p aggressive fluids for sepsis with obstructive uropathy -urology was consulted and placed ureteral stent with good effect now with robust output, will monitor fluid status and hypoxemia and expect it to improve -strict I/Os -has a pending TTE read -lasix 40 IV daily Cholestatic LFT abnormalities with elevated alk phos bilirubin i//s/o of sepsis, now resolved. -Ultrasound gallbladder showed a polyp but without stones of biliary duct dilatation -repeat LFTs normalized -no noted complaints or concerning examination findings History of ascending thoracic aortic aneurysm 4.1cm, last noted imaging was in 2014 -Pending TTE read -Normotensive currently without pain complaints VALERIANO on CKD with a history of remote L nephrectomy with obstructive uropathy and R hydronephrosis -Gallbladder US noted R moderate hydro, confirmed by CT A/P with unclear source of obstruction enlarged nodes vs. mass, will require either MRI or CT with contrast as renal function improves. -s/p R ureteral stent placement on 06/07 by urology with prompt robust output and Cr now downtrending -s/p fluids -strict I/Os -holding ACEi among the antihypertensives -will give 40 lasix IV QD until euvolemic after aggressive fluids and hypervolemia i/s/o obstructive uropathy Hypertension: was holding all meds while septic -holding benazepril, amlodipine and clonidine -metop 50Q6H, also giving lasix 40 IV QD Dyslipidemia -on pravastatin CODE STATUS: DNR/DNI Diet: Renal diet DVT prophylaxis: On Eliquis for new onset A. fib VS,Fishbone, I+O VS, Fishbone, I+O Laboratory Tests 06/08/21 04:58 Vital Signs Date Time Temp Pulse Resp B/P (MAP) Pulse Ox O2 Delivery O2 Flow Rate FiO2 06/08/21 07:19 157/92 (113) 06/08/21 07:17 97.6 92 18 95 Nasal Cannula 3.0 06/05/21 20:00 88 I&O- Last 24 Hours up to 6 AM 06/08/21 06:00 Intake Total 360 ml Output Total 2500 ml Balance -2140 ml NICOLASA WEATHERS MD Jun 08, 2021 07:45
--- NOTE | 2021-06-08 15:41 | IPN ---
PROGRESS NOTE DATE: 06/07/2021 Angelita had a cystoscopy and stent placement done last night. She was doing much better except for some visual hallucinations. She thinks there were bugs on the ceiling. She still has some hypoxia and is in atrial fibrillation. She is on 2 liters oxygen. She denies any cough or shortness of breath. No nausea, vomiting, or diarrhea. No urinary symptoms. A urine culture was positive for Escherichia (E) coli, pansensitive. Blood cultures were also positive for E. coli. Patient was switched to intravenous (IV) Rocephin. PHYSICAL EXAMINATION: HEART: Normal S1, S2, irregular. LUNGS: Decreased breath sounds at bases with few crackles. ABDOMEN: Soft, nontender. No hepatosplenomegaly. BACK: No costovertebral angle (CVA) tenderness. EXTREMITIES: Pitting edema +1. GENITOURINARY: She has a Vilchis catheter with dark bloody urine. LABORATORY DATA: On June 07, white count is down to 18.6, hemoglobin 12.5, hematocrit 37.6, platelets 168, 93% neutrophils. Sodium 142, potassium 3.9, chloride 110, bicarbonate 22, BUN 37, creatinine 1.35, glucose 127, calcium 9.3. BNP 15,645. IMPRESSION: 1. Sepsis due to pyelonephritis, resolved. Fever has resolved. Repeat blood cultures are negative. Urine and blood cultures were positive for Escherichia (E) coli. Patient on IV Rocephin, switched from IV Zosyn. I agree with de-escalation. 2. Atrial fibrillation with rapid ventricular response and congestive heart failure with hypoxia. Patient would benefit from more IV Lasix. PLAN: Continue IV Rocephin until afebrile and white count less than 15,000. Then could be switched to oral antibiotics. I did discuss the case with primary care, with the hospitalist team regarding diuresis. JOSI
[2021-06-09] VITALS (9 sets, daily range): BP systolic 120–170; BP diastolic 64–103
[2021-06-09] MEDS: METOPROLOL TART 50 MG TAB PO SCH ×4 (00:07→17:35)
[2021-06-09] MEDS ORDERED: hydrALAZINE 20MG/ML 1ML VIAL (J0360 PER 20MG) IV ONE (03:30)
[2021-06-09 04:49] LABS: BASO % 0.2 % (0.0-1.0); EOS # 0.1 10^3/uL (0.0-0.5); EOS % 0.8 % (0.0-3.0); HEMATOCRIT 39.3 % (36.0-47.0); HEMOGLOBIN 13.1 g/dl (12.0-15.5); LYMPH # 1.5 10^3/uL (1.5-5.0); LYMPH % 11.4 % (24.0-44.0); MEAN CORPUSCULAR HEMOGLOBIN 29.6 pg (27.0-33.0); MEAN CORPUSCULAR HGB CONC 33.3 g/dl (32.0-36.5); MEAN CORPUSCULAR VOLUME 88.7 fl (80.0-96.0); NEUTROPHILS # 10.5 10^3/uL (1.5-8.5); NEUTROPHILS % 77.7 % (36.0-66.0); PLATELET COUNT, AUTOMATED 256 10^3/uL (150-450); RED BLOOD COUNT 4.43 10^6/uL (4.00-5.40); WHITE BLOOD COUNT 13.5 10^3/uL (4.0-10.0)
[2021-06-09 05:11] LABS: BLOOD UREA NITROGEN 20 MG/DL (7-18); CALCIUM LEVEL 9.4 MG/DL (8.8-10.2); CARBON DIOXIDE LEVEL 26 MEQ/L (21-32); CHLORIDE LEVEL 111 MEQ/L (98-107); CREATININE FOR GFR 0.77 MG/DL (0.55-1.30); GLOMERULAR FILTRATION RATE > 60.0 (>32); GLUCOSE, FASTING 89 MG/DL (70-100); POTASSIUM SERUM 3.6 MEQ/L (3.5-5.1); SODIUM LEVEL 143 MEQ/L (136-145)
[2021-06-09] MEDS: cefTRIAXone SOD 2 GM in D5W MINI-BAG PLUS 50 ML IV SCH (08:03)
[2021-06-09] MEDS: APIXABAN 2.5 MG TAB (ELIQUIS) PO SCH ×2 (08:03→20:23)
[2021-06-09] MEDS: PRAVASTATIN 20 MG TAB PO SCH (08:03)
[2021-06-09] MEDS: LACTOBACILLUS ACIDOPHILUS CAP (BACID) PO SCH ×3 (08:03→17:35)
[2021-06-09] MEDS: FUROSEMIDE 40MG/4ML VIAL (J1940) IV SCH (08:03)
--- NOTE | 2021-06-09 14:16 | IPNPDOC ---
Text Note Date of Service The patient was seen on 06/09/21. NOTE Subjective: -Confusion continues to improve, she actually realizes when she has some confusion or visual stimuli that is not real -RVR improved in low 100s -Hypertensive overnight, got hydral x 1 dose Objective: VITAL SIGNS: See below GENERAL APPEARANCE: NAD, conversational, AOx3 HEENT: NCAT, EOMI, moist mucous membranes CARDIOVASCULAR: Irregularly irregular, no noted murmurs LUNGS: Some wheezing close to bilateral apices, otherwise clear ABDOMEN:Normoactive bowel sounds, soft nontender on my examination without rebound or guarding EXTREMITIES: 1+ edema bilateral lower extremity edema. [facility] LABORATORY DATA: Reviewed WBC 13.5 hgb 13.1 platelets 256 na 144 K 3.6 Cr downtrended to 0.77 MICROBIOLOGY: 06/04 UCx and 06/04 BCx growing pansensitive E.coli 06/06 UCx and BCx - negative to date IMAGING: Gall bladder US: Liver: There are few scattered hepatic cysts. Gallbladder: The gallbladder is partially distended. There is a 4 mm gallbladder polyp. There are no gallstones. Common bile duct: The common bile duct measures 3 mm. Pancreas: Visualized pancreas is unremarkable. Right kidney: The right kidney measures 13.1 cm in greatest sagittal dimension. There is moderate right hydronephrosis. There is a simple cyst extending from the right upper pole measuring 4.4 cm. IMPRESSION: 1. There is no biliary duct dilatation. 2. 4 mm gallbladder polyp. A repeat exam in 6 months is recommended to document for stability. 3. Moderate right hydronephrosis of uncertain etiology. ASSESSMENT: 80-year-old W who was admitted with new onset A. fib with RVR, sep sis 2/2 obstructive pyelonephritis and VALERIANO on CKD. New onset atrial fibrillation with rapid ventricle response i/s/o urosepsis 2/2 pyelonephritis with obstructive uropathy -Was started on eliquis renally dosed bid, will continue -TTE read pending -s/p IVF -negative troponin, EKG without acute ST changes -continue metop to 50Q6H Sepsis 2/2 pyelonephritis: fever, tachycardia, leukocytosis with bandemia and lactic acidosis with +++UA -UCx and BCx grew pansensitive Ecoli -f/u 06/06 BCx and UCx, NGTD -s/p 3L IVF -De-escalated to ceftriaxone after speciation and sensitivities, will switch to keflex tomorrow AM now that WBC is <15 per ID recs Pyelonephritis: -UCx and BCx grew pansensitive Ecoli -f/u 06/06 BCx and UCx -s/p IVF -De-escalated to ceftriaxone after speciation and sensitivities with plan to switch to keflex tomorrow Hypoxemia: i/2/o Afib with RVR and also s/p aggressive fluids for sepsis with obstructive uropathy -urology was consulted and placed ureteral stent with good effect now with robust output, will monitor fluid status and hypoxemia and expect it to improve -strict I/Os -has a pending TTE read -lasix 40 IV daily, having robust response Cholestatic LFT abnormalities with elevated alk phos bilirubin i//s/o of sepsis, now resolved. -Ultrasound gallbladder showed a polyp but without stones of biliary duct dilatation -repeat LFTs normalized -no noted complaints or concerning examination findings History of ascending thoracic aortic aneurysm 4.1cm, last noted imaging was in 2014 -Pending TTE read -Normotensive currently without pain complaints VALERIANO on CKD with a history of remote L nephrectomy with obstructive uropathy and R hydronephrosis: resolved -Gallbladder US noted R moderate hydro, confirmed by CT A/P with unclear source of obstruction enlarged nodes vs. mass, will require either MRI or CT with contrast as renal function improves. -s/p R ureteral stent placement on 06/07 by urology with prompt robust output and Cr now downtrending -s/p fluids -strict I/Os -holding ACEi among the antihypertensives -will give 40 lasix IV QD until euvolemic after aggressive fluids and hypervolemia i/s/o obstructive uropathy Hypertension: was holding all meds while septic -holding benazepril, amlodipine and clonidine -metop 50Q6H, also giving lasix 40 IV QD Dyslipidemia -on pravastatin CODE STATUS: DNR/DNI Diet: Renal diet DVT prophylaxis: On Eliquis for new onset A. fib VS,Fishbone, I+O VS, Fishbone, I+O Laboratory Tests 06/09/21 04:26 Vital Signs Date Time Temp Pulse Resp B/P (MAP) Pulse Ox O2 Delivery O2 Flow Rate FiO2 06/09/21 07:21 98.4 103 18 122/87 (99) 96 Nasal Cannula 3.0 06/05/21 20:00 88 I&O- Last 24 Hours up to 6 AM 06/09/21 06:00 Intake Total 1000 ml Output Total 3425 ml Balance -2425 ml NICOLASA WEATHERS MD Jun 09, 2021 08:41
--- NOTE | 2021-06-09 20:00 | IPNPDOC ---
Subjective Review oF Systems Chief Complaint Chief Complaint The patient is a 80-year-old female s/p cysto and right ureteral stent (solitary kidney) for VALERIANO and urosepsis. She responded with WBC < 10k on Zosyn for E. Coli. . She has a Vilchis with clear Urine output good. F/U with urology as and outpatient for stent management Objective Physical Examination ABDOMEN EXAM: Soft Vital Signs/I&O Vital Signs Date Time Temp Pulse Resp B/P (MAP) Pulse Ox O2 Delivery O2 Flow Rate FiO2 06/09/21 17:35 130 156/90 06/09/21 16:00 3.0 06/09/21 15:40 18 96 Nasal Cannula 06/09/21 15:29 97.9 06/05/21 20:00 88 I&O- Last 24 Hours up to 6 AM 06/09/21 06:00 Intake Total 1000 ml Output Total 3425 ml Balance -2425 ml Laboratory Data Labs 24H Laboratory Tests 2 06/09/21 04:26: Immature Granulocyte % (Auto) 2.9, Neutrophils (%) (Auto) 77.7H, Lymphocytes (%) (Auto) 11.4L, Monocytes (%) (Auto) 7.0, Eosinophils (%) (Auto) 0.8, Basophils (%) (Auto) 0.2, Neutrophils # (Auto) 10.5H, Lymphocytes # (Auto) 1.5, Monocytes # (Auto) 1.0H, Eosinophils # (Auto) 0.1, Basophils # (Auto) 0.0, Nucleated Red Blood Cells % (auto) 0.0, Anion Gap 6L, Glomerular Filtration Rate > 60.0, Calcium Level 9.4 CBC/BMP Laboratory Tests 06/09/21 04:26 Microbiology Microbiology 06/06/21 Urine Culture - Final, Complete 06/06/21 Blood Culture - Preliminary, Resulted No Growth after 72 hours. All specime... 06/05/21 Urine Culture - Final, Complete Escherichia Coli 06/04/21 Respiratory Virus Panel (PCR) ([facility]) - Final, Complete 06/04/21 Blood Culture - Final, Complete Escherichia Coli 06/04/21 Blood Culture - Final, Complete Escherichia Coli Assessment/Plan Date Seen The patient was seen on 06/09/21. Plan/VTE VTE Prophylaxis Ordered?: Yes Plan/Urinary Catheter Reason for insertion/continuin: Critical Pt monitoring REDDY MOTTA M.D. Jun 09, 2021 20:00
[2021-06-10] VITALS: BP 158/92
[2021-06-10] MEDS: METOPROLOL TART 50 MG TAB PO SCH ×4 (00:05→17:09)
[2021-06-10 04:00] VITALS: BP 138/96
[2021-06-10 05:21] LABS: HEMATOCRIT 40.3 % (36.0-47.0); HEMOGLOBIN 13.3 g/dl (12.0-15.5); MEAN CORPUSCULAR HEMOGLOBIN 29.8 pg (27.0-33.0); MEAN CORPUSCULAR VOLUME 90.2 fl (80.0-96.0); PLATELET COUNT, AUTOMATED 275 10^3/uL (150-450); RED BLOOD COUNT 4.47 10^6/uL (4.00-5.40); WHITE BLOOD COUNT 16.7 10^3/uL (4.0-10.0)
[2021-06-10 05:42] LABS: BLOOD UREA NITROGEN 21 MG/DL (7-18); CALCIUM LEVEL 9.4 MG/DL (8.8-10.2); CARBON DIOXIDE LEVEL 28 MEQ/L (21-32); CHLORIDE LEVEL 108 MEQ/L (98-107); GLOMERULAR FILTRATION RATE > 60.0 (>32); GLUCOSE, FASTING 97 MG/DL (70-100); POTASSIUM SERUM 3.9 MEQ/L (3.5-5.1); SODIUM LEVEL 140 MEQ/L (136-145)
[2021-06-10 05:44] LABS: ATYPICAL LYMPH 3 % (0-5); EOSINOPHILS 4 % (0-3); LYMPHOCYTES 14 % (16-44); MONOCYTES 4 % (0-5); NEUTROPHILS 75 % (28-66); PLATELET ESTIMATE NORMAL (NORMAL)
[2021-06-10 07:38] VITALS: BP 178/80
[2021-06-10] MEDS: APIXABAN 2.5 MG TAB (ELIQUIS) PO SCH ×2 (08:09→20:35)
[2021-06-10] MEDS: cefTRIAXone SOD 2 GM in D5W MINI-BAG PLUS 50 ML IV SCH (08:09)
[2021-06-10] MEDS: FUROSEMIDE 40MG/4ML VIAL (J1940) IV SCH ×2 (08:09→17:10)
[2021-06-10] MEDS: PRAVASTATIN 20 MG TAB PO SCH (08:09)
[2021-06-10] MEDS: LACTOBACILLUS ACIDOPHILUS CAP (BACID) PO SCH ×3 (08:09→17:09)
[2021-06-10 11:49] VITALS: BP 128/56
--- NOTE | 2021-06-10 13:42 | IPNPDOC ---
Text Note Date of Service The patient was seen on 06/10/21. NOTE Subjective: -No acute complaints, on 3L NC -Hypertensive overnight, got hydral x 1 dose Objective: VITAL SIGNS: See below GENERAL APPEARANCE: NAD, conversational, AOx3 HEENT: NCAT, EOMI, moist mucous membranes CARDIOVASCULAR: Irregularly irregular, no noted murmurs LUNGS: Some wheezing close to bilateral apices, otherwise clear ABDOMEN:Normoactive bowel sounds, soft nontender on my examination without rebound or guarding EXTREMITIES: 1+ edema bilateral lower extremity edema. [facility] LABORATORY DATA: Reviewed WBC 16.7 hgb 13.3 platelets 275 na 140 K 3.9 Cr 0.9 MICROBIOLOGY: 06/04 UCx and 06/04 BCx growing pansensitive E.coli 06/06 UCx and BCx - negative to date IMAGING: Gall bladder US: Liver: There are few scattered hepatic cysts. Gallbladder: The gallbladder is partially distended. There is a 4 mm gallbladder polyp. There are no gallstones. Common bile duct: The common bile duct measures 3 mm. Pancreas: Visualized pancreas is unremarkable. Right kidney: The right kidney measures 13.1 cm in greatest sagittal dimension. There is moderate right hydronephrosis. There is a simple cyst extending from the right upper pole measuring 4.4 cm. IMPRESSION: 1. There is no biliary duct dilatation. 2. 4 mm gallbladder polyp. A repeat exam in 6 months is recommended to document for stability. 3. Moderate right hydronephrosis of uncertain etiology. ASSESSMENT: 80-year-old W who was admitted with new onset A. fib with RVR, sepsis 2/2 obstructive pyelonephritis and VALERIANO on CKD. New onset atrial fibrillation with rapid ventricle response i/s/o urosepsis 2/2 pyelonephritis with obstructive uropathy -Was started on eliquis renally dosed bid, will continue -TTE read still pending -s/p IVF -negative troponin, EKG without acute ST changes -continue metop to 50Q6H Sepsis 2/2 pyelonephritis: fever, tachycardia, leukocytosis with bandemia and lactic acidosis with +++UA -UCx and BCx grew pansensitive Ecoli -f/u 06/06 BCx and UCx, NGTD -s/p 3L IVF -De-escalated to ceftriaxone after speciation and sensitivities, to switch to keflex once WBC is consistently under 15. Pyelonephritis: -UCx and BCx grew pansensitive Ecoli -f/u 06/06 BCx and UCx -s/p IVF -De-escalated to ceftriaxone after speciation and sensitivities Hypoxemia: i/2/o Afib with RVR and also s/p aggressive fluids for sepsis with obstructive uropathy -urology was consulted and placed ureteral stent with good effect now with robust output, will monitor fluid status and hypoxemia and expect it to improve -strict I/Os -has a pending TTE read for HF eval -lasix 40 IV BID, having robust response Cholestatic LFT abnormalities with elevated alk phos bilirubin i//s/o of sepsis, now resolved. -Ultrasound gallbladder showed a polyp but without stones of biliary duct dilatation -repeat LFTs normalized -no noted complaints or concerning examination findings History of ascending thoracic aortic aneurysm 4.1cm, last noted imaging was in 2014 -Pending TTE read -Normotensive currently without pain complaints VALERIANO on CKD with a history of remote L nephrectomy with obstructive uropathy and R hydronephrosis: resolved -Gallbladder US noted R moderate hydro, confirmed by CT A/P with unclear source of obstruction enlarged nodes vs. mass, will require either MRI or CT with contrast as renal function improves. -s/p R ureteral stent placement on 06/07 by urology with prompt robust output and Cr now downtrending -s/p fluids -strict I/Os -holding ACEi among the antihypertensives -40 lasix IV BID until euvolemic after aggressive fluids and hypervolemia i/s/o obstructive uropathy Hypertension: was holding all meds while septic. will restart the amlodipine first. -holding benazepril and clonidine -metop 50Q6H, also giving lasix 40 IV BID today -restart amlodipine 10 QD starting tomorrow AM, will restart the other two meds as indicated. Dyslipidemia -on pravastatin CODE STATUS: DNR/DNI Diet: Renal diet DVT prophylaxis: On Eliquis for new onset A. fib VS,Fishbone, I+O VS, Fishbone, I+O Laboratory Tests 06/10/21 05:05 Vital Signs Date Time Temp Pulse Resp B/P (MAP) Pulse Ox O2 Delivery O2 Flow Rate FiO2 06/10/21 07:38 98.8 110 20 178/80 (112) 98 Nasal Cannula 3.0 06/05/21 20:00 88 I&O- Last 24 Hours up to 6 AM 06/10/21 06:00 Intake Total 1210 ml Output Total 2075 ml Balance -865 ml NICOLASA WEATHERS MD Jun 10, 2021 09:09
[2021-06-10 16:00] VITALS: BP 142/83
--- NOTE | 2021-06-10 18:02 | IPN ---
INFECTIOUS DISEASE PROGRESS NOTE DATE: 06/10/2021 SUBJECTIVE: Angelita seems to be doing great. She has no nausea, vomiting or diarrhea. No abdominal pain. Confusion has resolved. She is eating her dinner, cottage cheese and peaches. Her is visiting. She is ready for discharge. She states she feels great. She denies any urinary symptoms, dysuria or hematuria. Her Vilchis catheter was removed about 3 hours ago. LABORATORY STUDIES: White count 16.7, hemoglobin 13.3, hematocrit 40.3, platelet count 275, 75% neutrophils, 14% lymphocytes, 4% eosinophils. Sodium 140, potassium 3.9, chloride 108, bicarbonate 28, BUN 21, creatinine 0.9, glucose 97, calcium 9.4, albumin 2.8. Urinalysis had many white cells. Urine culture and blood cultures both are E-coli. A repeat urine culture from the right kidney was negative. IMPRESSION AND PLAN: 1. Sepsis from urinary tract origin - status post cystoscopy and right ureteral stent. The patient has a solitary kidney. She is doing well on IV Rocephin. Her white count remains elevated. She will be switched to oral Cefdinir 600 mg daily. If white count continues to improve, she could be discharged home tomorrow. 2. We will continue another 7 days of antibiotics.
[2021-06-10 20:00] VITALS: BP 120/84
--- NOTE | 2021-06-10 21:18 | IPNPDOC ---
Date Seen The patient was seen on 06/10/21. 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 details plan home with stent in place will evaluate right kidney as an outpt currently being treated for uti d/w pt and thanks [phone] VS, I&O, 24H, Fishbone Vital Signs/I&O Vital Signs Date Time Temp Pulse Resp B/P (MAP) Pulse Ox O2 Delivery O2 Flow Rate FiO2 06/10/21 20:00 97.8 94 16 120/84 (96) 95 Room Air 06/10/21 16:00 3.0 06/05/21 20:00 88 I&O- Last 24 Hours up to 6 AM 06/10/21 06:00 Intake Total 1210 ml Output Total 2075 ml Balance -865 ml Laboratory Data 24H LABS Laboratory Tests 2 06/10/21 05:05: Neutrophils (%) (Auto) , Nucleated Red Blood Cells % (auto) 0.0, Neutrophils 75H, Lymphocytes (Manual) 14L, Monocytes (Manual) 4, Eosinophils (Manual) 4H, Atypical Lymphocytes 3, Platelet Estimate NORMAL, Anion Gap 4L, Glomerular Filtration Rate > 60.0, Calcium Level 9.4 CBC/BMP Laboratory Tests 06/10/21 05:05 Microbiology Microbiology 06/06/21 Urine Culture - Final, Complete 06/06/21 Blood Culture - Preliminary, Resulted No Growth after 72 hours. All specime... 06/05/21 Urine Culture - Final, Complete Escherichia Coli 06/04/21 Respiratory Virus Panel (PCR) ([facility]) - Final, Complete 06/04/21 Blood Culture - Final, Complete Escherichia Coli 06/04/21 Blood Culture - Final, Complete Escherichia Coli CHETAN WESTON MD Jun 10, 2021 21:18
[2021-06-11] VITALS: BP 157/89
[2021-06-11] MEDS: METOPROLOL TART 50 MG TAB PO SCH ×3 (00:18→12:11)
[2021-06-11 04:00] VITALS: BP 145/84
[2021-06-11 05:52] LABS: HEMATOCRIT 40.8 % (36.0-47.0); HEMOGLOBIN 13.5 g/dl (12.0-15.5); MEAN CORPUSCULAR HEMOGLOBIN 29.6 pg (27.0-33.0); MEAN CORPUSCULAR HGB CONC 33.1 g/dl (32.0-36.5); MEAN CORPUSCULAR VOLUME 89.5 fl (80.0-96.0); PLATELET COUNT, AUTOMATED 332 10^3/uL (150-450); RED BLOOD COUNT 4.56 10^6/uL (4.00-5.40); WHITE BLOOD COUNT 14.4 10^3/uL (4.0-10.0)
[2021-06-11 06:05] LABS: BLOOD UREA NITROGEN 20 MG/DL (7-18); CALCIUM LEVEL 9.4 MG/DL (8.8-10.2); CARBON DIOXIDE LEVEL 27 MEQ/L (21-32); CHLORIDE LEVEL 106 MEQ/L (98-107); CREATININE FOR GFR 0.74 MG/DL (0.55-1.30); GLOMERULAR FILTRATION RATE > 60.0 (>32); GLUCOSE, FASTING 94 MG/DL (70-100); POTASSIUM SERUM 3.4 MEQ/L (3.5-5.1); SODIUM LEVEL 138 MEQ/L (136-145)
[2021-06-11 06:14] LABS: EOSINOPHILS 5 % (0-3); LYMPHOCYTES 12 % (16-44); MONOCYTES 9 % (0-5); NEUTROPHILS 74 % (28-66); PLATELET ESTIMATE NORMAL (NORMAL)
[2021-06-11 07:29] VITALS: BP 134/89
[2021-06-11] MEDS: APIXABAN 2.5 MG TAB (ELIQUIS) PO SCH (08:17)
[2021-06-11] MEDS: LACTOBACILLUS ACIDOPHILUS CAP (BACID) PO SCH ×2 (08:17→12:11)
[2021-06-11] MEDS: PRAVASTATIN 20 MG TAB PO SCH (08:17)
[2021-06-11] MEDS: FUROSEMIDE 40MG/4ML VIAL (J1940) IV SCH (08:18)
[2021-06-11] MEDS ORDERED: CEFDINIR 300 MG CAP (OMNICEF) PO SCH (09:00)
[2021-06-11] MEDS ORDERED: ELIQ5TAB PO (10:30)
[2021-06-11] MEDS ORDERED: RISATAB3 PO (11:56)
[2021-06-11] MEDS ORDERED: LOPR1TAB7 PO (11:56)
[2021-06-11] MEDS ORDERED: CEFD300CAP PO (11:57)
[2021-06-11 12:11] VITALS: BP 132/91
[2021-06-11] MEDS ORDERED: METOPROLOL TARTRATE 100 MG TAB PO SCH (21:00)
[2021-06-11] MEDS ORDERED: APIXABAN 5 MG TAB (ELIQUIS) PO SCH (21:00)
--- NOTE | 2021-06-13 12:36 | DS.PDOC ---
Discharge Summary General Date of Admission Jun 04, 2021 at 22:09 Date of Discharge 06/11/21 Discharge Summary PROCEDURES PERFORMED DURING STAY: Right ureteral stent placement DISCHARGE DIAGNOSES: Sepsis due to pyelonephritis Obstructive uropathy in a solitary kidney with right hydronephrosis New onset A. fib with RVR VALERIANO on CKD Solitary right kidney Fluid overload after fluid resuscitation for sepsis SECONDARY DIAGNOSIS: 4.1 cm ascending aortic aneurysm. Hepatic and renal cyst. hypertension. Dyslipidemia. cervical cancer. Kidney stone with obstruction on the left side, status post nephrectomy. History of MRSA, E. coli and E. faecalis on urine cultures in the past. COMPLICATIONS/CHIEF COMPLAINT: Atrial Fibrillation With Rapid Ventricular Respons. HOSPITAL COURSE: Mrs. Ribera is an 80-year-old female who presented to the hospital with a three-day history of worsening shortness of breath and abdominal discomfort. The patient had taken some Maalox without any improvement. She is very active at baseline drives and dances. After the patient was brought into the emergency room, she was noted to be in atrial fibrillation with rapid ventricular response. She had a dirty UA. and she was hypotensive. CT abdomen and pelvis showed single kidney( right) with hydronephrosis she was admitted for sepsis due to urinary tract infection and A. fib with RVR . blood cultures were obtained, were positive for gram negative bacteremia and urine cultures were also positive for gram negative rods. Sepsis 2/2 pyelonephritis UCx and BCx grew pansensitive Ecoli Received Zosyn and ceftriaxone in hospital Discharged with cefdinir Gram-negative bacteremia From E coli Discharge with cefdinir Pyelonephritis: UCx and BCx grew pansensitive Ecoli Cefdinir New onset atrial fibrillation with rapid ventricle response started on eliquis renally dosed bid, will continue Discharged with metoprolol 100 twice daily Cholestatic LFT abnormalities with elevated alk phos bilirubin i//s/o of sepsis, now resolved. Ultrasound gallbladder showed a polyp but without stones of biliary duct dilatation repeat LFTs normalized History of ascending thoracic aortic aneurysm 4.1cm, last noted imaging was in 2014 Stable VALERIANO on CKD with a history of remote L nephrectomy due to stones now with obstructive uropathy and R hydronephrosis: resolved s/p R ureteral stent placement on 06/07 by urology unclear source of obstruction enlarged nodes vs. mass, will require either MRI or CT with contrast. To follow-up with urology for evaluation of causes of obstruction Hypertension Recently hypotensive from sepsis. Recent VALERIANO Benzapril and clonidine stopped Restarted amlodipine. Prescribed metoprolol which is a new medication. Dyslipidemia pravastatin DISCHARGE MEDICATIONS: Please see below. ALLERGIES: Please see below. PHYSICAL EXAMINATION ON DISCHARGE: VITAL SIGNS: Please see below. GENERAL APPEARANCE: NAD, conversational, AOx3 HEENT: NCAT, EOMI, moist mucous membranes CARDIOVASCULAR: Irregularly irregular, no noted murmurs LUNGS: Some wheezing close to bilateral apices, otherwise clear ABDOMEN:Normoactive bowel sounds, soft nontender on my examination without rebound or guarding EXTREMITIES: No edema LABORATORY DATA: Please see below. IMAGING: Gall bladder US: Liver: There are few scattered hepatic cysts. Gallbladder: The gallbladder is partially distended. There is a 4 mm gallbladder polyp. There are no gallstones. Common bile duct: The common bile duct measures 3 mm. Pancreas: Visualized pancreas is unremarkable. Right kidney: The right kidney measures 13.1 cm in greatest sagittal dimension. There is moderate right hydronephrosis. There is a simple cyst extending from the right upper pole measuring 4.4 cm. IMPRESSION: 1. There is no biliary duct dilatation. 2. 4 mm gallbladder polyp. A repeat exam in 6 months is recommended to document for stability. 3. Moderate right hydronephrosis of uncertain etiology. ACTIVITY: [As tolerated]. DIET: As tolerated DISPOSITION: Home Health Service. DISCHARGE INSTRUCTIONS: Follow-up with urology in 1 to 2-week PMD in 1 week DISCHARGE CONDITION: [Stable]. TIME SPENT ON DISCHARGE: 35 minutes. Vital Signs/I&Os Vital Signs Date Time Temp Pulse Resp B/P (MAP) Pulse Ox O2 Delivery O2 Flow Rate FiO2 06/11/21 12:11 93 132/91 06/11/21 11:30 97.9 16 96 Room Air 06/11/21 04:00 3.0 Microbiology Microbiology 06/06/21 Urine Culture - Final, Complete 06/06/21 Blood Culture - Final, Complete NO GROWTH AFTER 5 DAYS 06/05/21 Urine Culture - Final, Complete Escherichia Coli 06/04/21 Respiratory Virus Panel (PCR) ([facility]) - Final, Complete 06/04/21 Blood Culture - Final, Complete Escherichia Coli 06/04/21 Blood Culture - Final, Complete Escherichia Coli Discharge Medications Scheduled Amlodipine Besylate (Amlodipine Besylate) 10 Mg Tablet, 10 MG PO DAILY, (Reported) Apixaban (Eliquis) 5 Mg Tablet, 1 TAB PO BID Cefdinir (Cefdinir) 300 Mg Capsule, 600 MG PO DAILY Cholecalciferol (Vitamin D3) (Vitamin D3) 1,000 Unit Tablet, 1,000 UNITS PO DAILY, (Reported) L.acidoph/L.bulg/B.bif/S.therm (Jaja-Bid Caplet) 1 Each Tablet, 1 EA PO WM Metoprolol Tartrate (Lopressor) 100 Mg Tablet, 100 MG PO BID Pravastatin Sodium (Pravastatin Sodium) 40 Mg Tablet, 40 MG PO DAILY, (Reported) Scheduled PRN Acetaminophen (Tylenol Arthritis) 650 Mg Tablet.er, 650 MG PO Q8H PRN for PAIN LEVEL 1-4, (Reported) Allergies Coded Allergies: No Known Allergies (Unverified , 06/04/21) LISSA DOUGLAS MD Jun 13, 2021 12:36
== END 2021-06-11 14:58 | disposition home health service (06) | DRG 854 ==
LOC: M ED 22:08 → M ED INP 22:09 → M PCU 06-05 05:50
PROVIDERS: ADMIT General Practice; ATTEND Internal Medicine Nephrology
PROC: 0T768DZ Dilation of Right Ureter with Intraluminal Device, Via Natural or Artificial Opening Endoscopic (ICD-10-PCS; principal; 2021-06-06 17:00)
DX: A41.9 Sepsis, unspecified organism (principal); E87.2 Acidosis; N17.9 Acute kidney failure, unspecified; N13.6 Pyonephrosis; I12.9 Hypertensive chronic kidney disease with stage 1 through stage 4 chronic kidney disease, or unspecified chronic kidney disease; I48.91 Unspecified atrial fibrillation; D72.825 Bandemia; N30.90 Cystitis, unspecified without hematuria; Z20.822 Contact with and (suspected) exposure to COVID-19; N18.30 Chronic kidney disease, stage 3 unspecified; R94.5 Abnormal results of liver function studies; I71.2 Thoracic aortic aneurysm, without rupture; Z85.41 Personal history of malignant neoplasm of cervix uteri; E78.5 Hyperlipidemia, unspecified; E03.9 Hypothyroidism, unspecified; M25.561 Pain in right knee; M25.562 Pain in left knee; Z79.899 Other long term (current) drug therapy; Z66 Do not resuscitate; Z90.5 Acquired absence of kidney; R09.02 Hypoxemia; E87.70 Fluid overload, unspecified; N28.1 Cyst of kidney, acquired; K76.89 Other specified diseases of liver

== ENCOUNTER → 2021-07-05 | Outpatient (REF) | payer OTHER, MEDICARE ==
[~2021-07-05] MED LIST: ACET650T61 PO; AMLO1TAB25 PO; BENA20TA PO; CEFD300CAP PO; CLON-412 PO; D31000TA2 PO; ELIQ5TAB PO; LOPR1TAB7 PO; PRAV40TA2 PO; RISATAB3 PO
[2021-07-05 16:20] LABS: HEMATOCRIT 40.7 % (36.0-47.0); MEAN CORPUSCULAR HEMOGLOBIN 30.5 pg (27.0-33.0); MEAN CORPUSCULAR HGB CONC 31.9 g/dl (32.0-36.5); MEAN CORPUSCULAR VOLUME 95.5 fl (80.0-96.0); PLATELET COUNT, AUTOMATED 306 10^3/uL (150-450); RED BLOOD COUNT 4.26 10^6/uL (4.00-5.40); WHITE BLOOD COUNT 8.8 10^3/uL (4.0-10.0)
[2021-07-05 16:49] LABS: ALBUMIN 3.6 GM/DL (3.2-5.2); BILIRUBIN,TOTAL 0.6 MG/DL (0.2-1.0); CALCIUM LEVEL 10.1 MG/DL (8.8-10.2); CREATININE FOR GFR 1.36 MG/DL (0.55-1.30); GLOMERULAR FILTRATION RATE 39.8 (>32); POTASSIUM SERUM 4.4 MEQ/L (3.5-5.1); TOTAL PROTEIN 7.4 GM/DL (6.4-8.2)
== END ==
LOC: M SHH 15:58
PROVIDERS: ATTEND Urology
DX: N28.89 Other specified disorders of kidney and ureter (principal)

== ENCOUNTER → 2021-07-12 | Outpatient (CLI) | payer MEDICARE, OTHER ==
--- NOTE | 2021-07-12 12:28 | REP ---
INDICATION: OTHER SPECIFIED DISORDERS OF KIDNEY AND URETER COMPARISON: 06/06/2021 TECHNIQUE: PA and lateral. FINDINGS: The mediastinum and cardiac silhouette are stable and within normal limits. The lung nguyen demonstrate stable chronic changes without acute consolidation, effusion, or pneumothorax. The skeletal structures are intact and normal. IMPRESSION: Chronic stable changes. No obvious acute process. <Electronically signed by Alexandre Fraser > 07/12/21 [id number]
== END ==
LOC: M PLAIMG 11:09
PROVIDERS: ATTEND Urology
DX: N28.89 Other specified disorders of kidney and ureter (principal)

== ENCOUNTER → 2021-07-26 | Outpatient (REF) | payer MEDICARE, OTHER ==
[~2021-07-26] MED LIST changes: +LIPOFLAVONOID PO; +VISION ESSENTIALS PO
== END ==
LOC: M SMT 14:59
PROVIDERS: ATTEND Urology
DX: N28.89 Other specified disorders of kidney and ureter (principal)

== ENCOUNTER → 2021-07-29 | Outpatient (CLI) | payer MEDICARE, OTHER | LOC: M LABSMTC 10:29 | PROVIDERS: ATTEND Anesthesiology | DX: Z01.818 Encounter for other preprocedural examination (principal); Z11.52 Encounter for screening for COVID-19 ==

== ENCOUNTER 2021-08-02 07:14 | Day surgery (SDC) | payer MEDICARE ==
[~2021-08-02] VITALS: Ht 165.1 cm; Wt 66.2 kg
[~2021-08-02 07:14] MED LIST changes: +CIPROFLOXACIN 400 MG in IV 1 EA IV ONE; +LR 1,000 ML IV ONE
[2021-08-02] MEDS ORDERED: CONRAY-60 60% 50ML VIAL (Q9961) As Ordered ONE (08:27)
[2021-08-02] MEDS ORDERED: METOPROLOL TART 25 MG TABLET PO ONE (08:30)
[2021-08-02] MEDS ORDERED: METOPROLOL TART 25 MG TABLET As Ordered ONE (08:31)
[2021-08-02] MEDS ORDERED: LIDOCAINE 2% 100MG/5ML SDV (FOR ANES.) As Ordered ONE (08:52)
[2021-08-02] MEDS ORDERED: dexameTHASONE 4 MG/ML 1ML VIAL (J1100 PER 1MG) As Ordered ONE (08:52)
[2021-08-02] MEDS ORDERED: ONDANSETRON 4MG/2ML VIAL As Ordered ONE (08:52)
[2021-08-02] MEDS ORDERED: propofoL 200 MG/20 ML VIAL As Ordered ONE (08:52)
[2021-08-02] MEDS ORDERED: fentaNYL 100 MCG/2 ML INJECTION (J3010) As Ordered ONE (08:52)
[2021-08-02] MEDS: oxyBUTYnin 5 MG TAB PO SCH ×2 (09:00→21:24)
[2021-08-02] MEDS ORDERED: ACETAMINOPHEN 1000MG 100ML IV BTL (OFIRMEV) (J0131 PER 10MG) As Ordered ONE (09:03)
[2021-08-02] MEDS ORDERED: ACETAMINOPHEN 500 MG TAB PO PRN (09:50)
[2021-08-02] MEDS ORDERED: NORCO, ANEXSIA 5/325MG TABLET (HYDROcodone/ACETAMINOPHEN) PO PRN (09:50)
[2021-08-02] MEDS ORDERED: PERCOCET 5MG/325MG TAB PO PRN (09:55)
[2021-08-02] MEDS ORDERED: ONDANSETRON 4MG/2ML VIAL IV PRN (09:55)
[2021-08-02] MEDS ORDERED: METOCLOPRAMIDE INJ 10MG/2ML VIAL (J2765 PER 1) IV PRN (09:55)
[2021-08-02] MEDS ORDERED: LR 1,000 ML IV SCH ×2 (09:55→10:00)
[2021-08-02] MEDS ORDERED: fentaNYL 100 MCG/2 ML INJECTION (J3010) IV PRN (09:55)
--- NOTE | 2021-08-02 10:58 | REP ---
INDICATION: RIGHT STENT PLACEMENT. COMPARISON: 06/06/2021. TECHNIQUE: Two views abdomen and pelvis using a C-arm. FINDINGS: Contrast partially opacifies the right pelvocaliceal system and ureter. The pelvocaliceal system is somewhat dilated as seen on prior study. A right ureteral stent is placed with the proximal end in the right renal pelvis and the distal end in the urinary bladder. IMPRESSION: 1 minute 7 seconds fluoroscopy time utilized. <Electronically signed by Saran Malik > 08/02/21 [id number]
--- NOTE | 2021-08-02 12:09 | IPNPDOC ---
Date Seen The patient was seen on 08/02/21. Progress Note pt admitted to observation because she has no one at home to look after her tonight given her general anesthesia VS, I&O, 24H, Fishbone Vital Signs/I&O Vital Signs Date Time Temp Pulse Resp B/P (MAP) Pulse Ox O2 Delivery O2 Flow Rate FiO2 08/02/21 11:30 69 16 126/75 (92) 97 Room Air 08/02/21 11:00 98.3 08/02/21 10:00 2.0 CHETAN WESTON MD Aug 02, 2021 12:09
--- NOTE | 2021-08-02 12:53 | ROOPDOC ---
[facility] Report Of Operation Report of Operation DATE OF PROCEDURE: 08/02/21 PREPROCEDURE DIAGNOSES: [Obstructed right urinary tract status post stent placement]. POSTPROCEDURE DIAGNOSES: [Right ureteral stone and right ureteral stricture]. PROCEDURE PERFORMED: [Cystoscopy, fluoroscopy, retrograde pyelography, rigid and flexible ureteroscopy, basket stone extraction, ureteral stricture dilatation, ureteral stent removal and replacement]. SURGEON: [Ricardo]MD MEDICAL BILLING CODER: [None], MD ANESTHESIA: [General]. ESTIMATED BLOOD LOSS: Approximately [minimal] mL. COMPLICATIONS: [None]. REMARKS: [80-year-old white female. Presented to the hospital with right-sided pain. 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 Found to have right hydronephrosis. Leukocytosis. [facility] urology placed a stent. Today's surgery arranged to better evaluate the right urinary tract. Also to hopefully deal with the obstruction one-way or the other. Risks were discussed such as infection, bleeding, pain, scarring, injury to urinary tract, failure of surgery, need for more surgery, risks of anesthesia and others. Informed consent obtained.]. FINDINGS: SPECIMENS REMOVED: [Right ureteral stone] PROCEDURE NOTE: . DESCRIPTION OF PROCEDURE: [I met with the patient in the preop area before surgery. Informed consent obtained. Surgery was once again discussed. Patient wished to proceed. Patient brought to the OR room. General anesthesia was secured. Dorsolithotomy position. Well-padded. Prepping and draping in the usual sterile fashion. Timeout performed. Surgery done under coverage of IV antibiotic. Rigid cystoscopy performed. Stent on the right identified and pulled to the external urethral meatus after which a wire was advanced through it to the kidney as seen using fluoroscopy. Stent then removed. Open-ended 5 Gabonese catheter advanced over the wire after which the wire was removed. Retrograde pyelography was performed. Contrast was injected under fluoroscopic guidance. When I first injected contrast it seemed to stop at about the pelvic brim. I advanced the ureteral catheter and injected once again. I did not see anything in particular. No hydronephrosis really. No distinct filling defect. The ureteral catheter was removed. Fluoroscopy was used to see how the ureter drained. In general, the retrograde pyelogram was not revealing. A wire was advanced up the ureter once again. With the wire in place, rigid ureteroscopy was performed. I could not advance the scope beyond the area of the pelvic brim even with help from a wire passed through the scope itself. I could not tell if there was a stricture or some other obstruction or simply an angle that I could not negotiate. A second wire was advanced up the ureter. Over this wire was passed a flexible ureteroscope. I inspected the calyces and renal pelvis. No pathology particular. On withdrawing the scope I found a stone in the proximal ureter. With a stone basket it was extracted. The ureter was inspected from top to bottom with the flexible ureteroscope. No other stones. There seemed to be a narrowing at the level of the pelvic brim. Not a short and distinct stricture so to speak but rather a longer narrowing. I decided to dilate this area. This was done using a 4 cm 15 mm balloon. Dilatation was done under fluoroscopic guidance. After this a new 6 Gabonese multilength stent was placed using the Seldinger technique. Bladder was emptied and the cystoscope removed. Patient tolerated surgery well. She will the room in satisfactory condition]. CHETAN WESTON MD Aug 02, 2021 12:53
[2021-08-02 20:47] VITALS: BP 125/91
[2021-08-02] MEDS: PHENAZOPYRIDINE 100 MG TAB PO SCH (21:24)
[2021-08-02] MEDS: METOPROLOL TARTRATE 100 MG TAB PO SCH (21:25)
[2021-08-03 05:25] VITALS: BP 112/68
[2021-08-03] MEDS ORDERED: OXYB5TAB10 PO (07:56)
[2021-08-03] MEDS ORDERED: PYRI1TAB5 PO (07:56)
[2021-08-03] MEDS ORDERED: BACT800T5 PO (07:56)
[2021-08-03] MEDS: oxyBUTYnin 5 MG TAB PO SCH (09:04)
[2021-08-03 09:05] VITALS: BP 136/92
[2021-08-03] MEDS: METOPROLOL TARTRATE 100 MG TAB PO SCH (09:05)
[2021-08-03] MEDS: PHENAZOPYRIDINE 100 MG TAB PO SCH (09:05)
--- NOTE | 2021-08-03 09:23 | IPNPDOC ---
Subjective Review oF Systems Chief Complaint The patient is a 80-year-old female admitted with a reason for visit of Obstruction Of Kidney. Events since Last Encounter Pt stable throughout the night. Without discomfort and voiding clear urine. General: Reports: Normal Appetite; Denies: ROS Unobtainable, Chills, Night Sweats, Fatigue, Malaise, Other Symptoms Constitutional: Denies: Fever, Chills, Sweats, Weakness, Malaise, Other Gastrointestinal: Denies: Nausea, Vomiting, Abdominal Pain, Diarrhea, C onstipation, Melena, Hematochezia, Other Symptoms Genitourinary: Denies: Dysuria, Frequency, Incontinence, Hematuria, Retention, Other Symptoms Objective Physical Examination General Exam: Alert, No Acute Distress ABDOMEN EXAM: Normal bowel sounds, Soft; No: BS Hyperactive, BS Hypoactive, Tenderness, Hepatospenomegaly, Mass, Hernia, Other Other physical findings No Flank tenderness Vital Signs/I&O Vital Signs Date Time Temp Pulse Resp B/P (MAP) Pulse Ox O2 Delivery O2 Flow Rate FiO2 08/03/21 09:05 87 136/92 08/03/21 05:25 98.2 16 95 Room Air 08/02/21 10:00 2.0 I&O- Last 24 Hours up to 6 AM 08/03/21 06:00 Intake Total 890 ml Balance 890 ml Assessment/Plan Date Seen The patient was seen on 08/03/21. Patient Summary PT doing well and good for discharge Plan/VTE VTE Prophylaxis Ordered?: Yes VTE Exclusion Mechanical Proph: Low Risk for VTE Plan Discharge today MAURA TRUJILLO MD Aug 03, 2021 09:23
[2021-08-08 12:08] LABS: CA Oxalate Dihy 50 % (.); Ca Ox Monohydrate 40 % (.); Size 3x3 mm (.)
== END 2021-08-03 11:30 | disposition home or self-care (01) ==
LOC: M SDC 07:14 → M MS5PR 18:50 → M SDC 08-03 11:30
PROVIDERS: ATTEND Urology
DX: N13.2 Hydronephrosis with renal and ureteral calculous obstruction (principal); I10 Essential (primary) hypertension; E78.5 Hyperlipidemia, unspecified; Z85.41 Personal history of malignant neoplasm of cervix uteri; Z92.21 Personal history of antineoplastic chemotherapy; Z92.3 Personal history of irradiation; Z79.01 Long term (current) use of anticoagulants; Z79.899 Other long term (current) drug therapy
CPT/HCPCS: 52332; 52341; 52352; 74420; 82365; 88300; C1769; C2617; J0131; J0744; J1100; J2405; J3010; Q9961

== ENCOUNTER → 2021-09-11 | Outpatient (CLI) | payer MEDICARE ==
[~2021-09-11] MED LIST changes: +BACT800T5 PO; -CIPROFLOXACIN 400 MG in IV 1 EA IV ONE; -LR 1,000 ML IV ONE; +OXYB5TAB10 PO; +PYRI1TAB5 PO
--- NOTE | 2021-09-11 12:20 | REP ---
INDICATION: RETAINED URETERAL STENT. COMPARISON: None. TECHNIQUE: Ultrasound evaluation of the right kidney was performed. FINDINGS: The right kidney measures 12.7 x 6.6 x 5.7 cm. There is a stiff index is 0.7. There is a cortical cyst in the upper pole of the right kidney measuring 4.5 x 4.3 x 3.5 cm. There is severe pelvicaliceal dilatation which could be obstructive or nonobstructive. There is no evidence of ureteral stent. The left kidney is surgically absent. IMPRESSION: 1. Severe hydronephrosis of the right kidney which could be obstructive or nonobstructive. 2. No evidence of retained ureteral stent. 3. There is a benign cortical cyst in the right kidney. <Electronically signed by Evin Bella > 09/11/21 [id number]
== END ==
LOC: M RAD 10:01
PROVIDERS: ATTEND Urology
DX: N13.2 Hydronephrosis with renal and ureteral calculous obstruction (principal); Z96.0 Presence of urogenital implants; N28.1 Cyst of kidney, acquired

== ENCOUNTER → 2021-10-09 | Outpatient (CLI) | payer MEDICARE ==
[2021-10-09 17:22] LABS: ALBUMIN 3.7 GM/DL (3.2-5.2); BILIRUBIN,TOTAL 0.4 MG/DL (0.2-1.0); CALCIUM LEVEL 10.4 MG/DL (8.8-10.2); CREATININE FOR GFR 1.16 MG/DL (0.55-1.30); GLOMERULAR FILTRATION RATE 47.7 (>32); POTASSIUM SERUM 4.4 MEQ/L (3.5-5.1); TOTAL PROTEIN 8.2 GM/DL (6.4-8.2)
== END ==
LOC: M PLALAB 15:35
PROVIDERS: ATTEND Urology
DX: Z90.5 Acquired absence of kidney (principal)
CPT/HCPCS: 36415; 80053; G0463

== ENCOUNTER → 2021-12-24 | Outpatient (REF) | payer MEDICARE | LOC: M LAB REF 16:17 | PROVIDERS: ATTEND Nurse Practitioner Adult Health | DX: N28.89 Other specified disorders of kidney and ureter (principal); R31.0 Gross hematuria ==

== ENCOUNTER → 2022-02-12 | Outpatient (CLI) | payer MEDICARE ==
[~2022-02-12] MED LIST changes: -D31000TA2 PO; +FUROSEMIDE 20MG/2ML VIAL (J1940) As Ordered ONE; +VITA100093 PO
== END ==
LOC: M RAD 08:38
PROVIDERS: ATTEND Urology
DX: Z90.5 Acquired absence of kidney (principal); N39.43 Post-void dribbling
CPT/HCPCS: 78708; A9562; J1940

== ENCOUNTER → 2022-02-18 | Outpatient (CLI) | payer MEDICARE ==
[~2022-02-18] MED LIST changes: -FUROSEMIDE 20MG/2ML VIAL (J1940) As Ordered ONE
== END ==
LOC: M WHC 12:38
PROVIDERS: ATTEND Urology
DX: N28.1 Cyst of kidney, acquired (principal); Z90.5 Acquired absence of kidney

== ENCOUNTER → 2022-02-18 | Outpatient (CLI) | payer MEDICARE ==
[2022-02-18 15:46] LABS: CALCIUM LEVEL 10.3 MG/DL (8.8-10.2); CREATININE FOR GFR 1.11 MG/DL (0.55-1.30); GLOMERULAR FILTRATION RATE 50.2 (>32); POTASSIUM SERUM 4.7 MEQ/L (3.5-5.1)
== END ==
LOC: M PLALAB 12:22
PROVIDERS: ATTEND Urology
DX: Z90.5 Acquired absence of kidney (principal)

== ENCOUNTER → 2022-04-29 | Outpatient (REF) | payer MEDICARE | LOC: M LAB REF 16:21 | PROVIDERS: ATTEND Nurse Practitioner Adult Health | DX: E83.52 Hypercalcemia (principal); N18.32 Chronic kidney disease, stage 3b ==

== ENCOUNTER → 2022-08-01 | Outpatient (REF) | payer MEDICARE ==
[2022-08-01 15:18] LABS: PHOSPHORUS LEVEL 3.1 MG/DL (2.5-4.9)
[2022-08-01 16:11] LABS: PTH INTACT 135.3 PG/ML (18.5-88.0)
== END ==
LOC: M LAB REF 12:09
PROVIDERS: ATTEND Nurse Practitioner Adult Health
DX: E83.52 Hypercalcemia (principal); N18.32 Chronic kidney disease, stage 3b

== ENCOUNTER → 2022-08-19 | Outpatient (CLI) | payer MEDICARE | LOC: M RAD 10:14 | PROVIDERS: ATTEND Urology | DX: N28.1 Cyst of kidney, acquired (principal); N13.5 Crossing vessel and stricture of ureter without hydronephrosis; Z90.5 Acquired absence of kidney ==

== ENCOUNTER → 2023-03-09 | Outpatient (CLI) | payer MEDICARE | LOC: M WUC 14:27 | PROVIDERS: ATTEND Nurse Practitioner Family | DX: L03.115 Cellulitis of right lower limb (principal); M79.604 Pain in right leg ==

== ENCOUNTER → 2023-04-10 | Outpatient (REF) | payer OTHER | LOC: M LAB REF 16:32 | PROVIDERS: ATTEND Nurse Practitioner Adult Health | DX: E21.3 Hyperparathyroidism, unspecified (principal) ==

== ENCOUNTER → 2023-08-27 | Outpatient (CLI) | payer OTHER ==
[~2023-08-27] MED LIST changes: -OXYB5TAB10 PO; +OXYB5TAB11 PO
== END ==
LOC: M RAD 13:41
PROVIDERS: ATTEND Urology
DX: Z90.5 Acquired absence of kidney (principal); N28.1 Cyst of kidney, acquired

== ENCOUNTER 2023-10-28 13:23 | Emergency (ER) | payer OTHER ==
[~2023-10-28] VITALS: Ht 165.1 cm; Wt 76.7 kg
[2023-10-28] MEDS ORDERED: ACETAMINOPHEN TAB 650MG DOSE (2X325MG) PO ONE (15:05)
[2023-10-28] MEDS ORDERED: BOOSTRIX VACCINE (TETANUS/DIPHTH/ACEL. PERTUSSIS) 0.5ML SYR IM.IMMUN ONE (15:10)
[2023-10-28 15:58] VITALS: BP 135/73; TEMP 97.8; O2SAT 97
== END 2023-10-28 16:09 | disposition home or self-care (01) ==
LOC: M ED 13:23
DX: S82.55XA Nondisplaced fracture of medial malleolus of left tibia, initial encounter for closed fracture (principal); S82.102A Unspecified fracture of upper end of left tibia, initial encounter for closed fracture; W19.XXXA Unspecified fall, initial encounter; K21.9 Gastro-esophageal reflux disease without esophagitis; E78.5 Hyperlipidemia, unspecified; I10 Essential (primary) hypertension; Y92.410 Unspecified street and highway as the place of occurrence of the external cause; Y93.89 Activity, other specified; Y99.9 Unspecified external cause status; Z79.01 Long term (current) use of anticoagulants; Z79.899 Other long term (current) drug therapy; Z23 Encounter for immunization

== ENCOUNTER → 2023-11-05 | Outpatient (CLI) | payer OTHER | LOC: M SOG 08:38 | PROVIDERS: ATTEND Physician Assistant | DX: S82.55XA Nondisplaced fracture of medial malleolus of left tibia, initial encounter for closed fracture (principal); M17.12 Unilateral primary osteoarthritis, left knee; Y93.9 Activity, unspecified; Y92.9 Unspecified place or not applicable ==

== ENCOUNTER → 2023-11-12 | Outpatient (CLI) | payer OTHER | LOC: M SOG 07:54 | PROVIDERS: ATTEND Physician Assistant | DX: S82.55XA Nondisplaced fracture of medial malleolus of left tibia, initial encounter for closed fracture (principal); M17.12 Unilateral primary osteoarthritis, left knee; Y93.9 Activity, unspecified; Y92.9 Unspecified place or not applicable ==

== ENCOUNTER 2023-11-20 12:11 | Emergency (ER) | payer OTHER ==
[~2023-11-20] VITALS: Ht 165.1 cm; Wt 73.7 kg
[2023-11-20 13:17] LABS: BASO % 0.4 % (0.0-1.0); EOS # 0.1 10^3/uL (0.0-0.5); EOS % 1.5 % (0.0-3.0); HEMATOCRIT 43.1 % (36.0-47.0); HEMOGLOBIN 13.8 g/dl (12.0-15.5); LYMPH # 1.3 10^3/uL (1.5-5.0); LYMPH % 13.5 % (24.0-44.0); MEAN CORPUSCULAR HEMOGLOBIN 30.6 pg (27.0-33.0); MEAN CORPUSCULAR VOLUME 95.6 fl (80.0-96.0); MONO # 0.8 10^3/uL (0.0-0.8); MONO % 8.2 % (2.0-8.0); PLATELET COUNT, AUTOMATED 407 10^3/uL (150-450); RED BLOOD COUNT 4.51 10^6/uL (4.00-5.40); WHITE BLOOD COUNT 9.2 10^3/uL (4.0-10.0)
[2023-11-20 13:29] LABS: ERYTHROCYTE SEDIMENTATION RATE 62 mm/hr (0-30)
[2023-11-20 13:32] LABS: C REACTIVE PROTEIN QUANTITATIV 0.5 MG/DL (<1.0)
[2023-11-20 13:34] LABS: CALCIUM LEVEL 10.5 MG/DL (8.3-10.6); CREATININE FOR GFR 1.08 MG/DL (0.55-1.30); GLOMERULAR FILTRATION RATE 51.6 (>32); POTASSIUM SERUM 4.7 MMOL/L (3.5-5.1)
[2023-11-20 15:30] VITALS: BP 125/78; TEMP 98.2; O2SAT 100
[2023-11-20] MEDS ORDERED: CEPH500C PO (15:34)
== END 2023-11-20 15:45 | disposition home or self-care (01) ==
LOC: M ED 12:11
DX: L03.116 Cellulitis of left lower limb (principal); S80.12XA Contusion of left lower leg, initial encounter; I10 Essential (primary) hypertension; I48.91 Unspecified atrial fibrillation; Y92.9 Unspecified place or not applicable; Y99.9 Unspecified external cause status; Y93.9 Activity, unspecified; Z79.899 Other long term (current) drug therapy; Z79.01 Long term (current) use of anticoagulants; Z79.1 Long term (current) use of non-steroidal anti-inflammatories (NSAID); Z79.83 Long term (current) use of bisphosphonates; Z79.2 Long term (current) use of antibiotics; Z79.891 Long term (current) use of opiate analgesic

== ENCOUNTER → 2023-11-23 | Outpatient (CLI) | payer OTHER ==
[~2023-11-23] MED LIST changes: +CEPH500C PO
== END ==
LOC: M RAD 10:38
PROVIDERS: ATTEND Physician Assistant
DX: M79.662 Pain in left lower leg (principal)

== ENCOUNTER → 2023-11-26 | Outpatient (CLI) | payer OTHER | LOC: M SOG 07:58 | PROVIDERS: ATTEND Physician Assistant | DX: S82.55XA Nondisplaced fracture of medial malleolus of left tibia, initial encounter for closed fracture (principal); X58.XXXA Exposure to other specified factors, initial encounter; Y92.9 Unspecified place or not applicable ==

== ENCOUNTER → 2023-12-10 | Outpatient (CLI) | payer OTHER | LOC: M SOG 10:30 | PROVIDERS: ATTEND Physician Assistant | DX: S82.55XA Nondisplaced fracture of medial malleolus of left tibia, initial encounter for closed fracture (principal); Y93.9 Activity, unspecified; Y92.9 Unspecified place or not applicable ==

== ENCOUNTER → 2024-01-07 | Outpatient (CLI) | payer OTHER ==
[~2024-01-07] MED LIST changes: -OXYB5TAB11 PO; +OXYB5TAB14 PO
== END ==
LOC: M SOG 08:53
PROVIDERS: ATTEND Physician Assistant
DX: S82.55XA Nondisplaced fracture of medial malleolus of left tibia, initial encounter for closed fracture (principal); M79.89 Other specified soft tissue disorders; X58.XXXA Exposure to other specified factors, initial encounter; Y92.9 Unspecified place or not applicable; Y93.9 Activity, unspecified; Y99.9 Unspecified external cause status

== ENCOUNTER → 2024-02-18 | Outpatient (CLI) | payer OTHER | LOC: M SOG 10:45 | PROVIDERS: ATTEND Physician Assistant | DX: S82.55XA Nondisplaced fracture of medial malleolus of left tibia, initial encounter for closed fracture (principal); W18.30XA Fall on same level, unspecified, initial encounter; Y92.009 Unspecified place in unspecified non-institutional (private) residence as the place of occurrence of the external cause ==

== ENCOUNTER → 2024-04-20 | Outpatient (CLI) | payer OTHER | LOC: M SOG 07:51 | PROVIDERS: ATTEND Physician Assistant | DX: S82.55XA Nondisplaced fracture of medial malleolus of left tibia, initial encounter for closed fracture (principal); R22.42 Localized swelling, mass and lump, left lower limb; M77.32 Calcaneal spur, left foot; M19.072 Primary osteoarthritis, left ankle and foot; Y99.8 Other external cause status; Y92.89 Other specified places as the place of occurrence of the external cause; Y93.89 Activity, other specified; X58.XXXA Exposure to other specified factors, initial encounter ==

== ENCOUNTER → 2024-08-18 | Outpatient (CLI) | payer OTHER | LOC: M WHC 10:04 | PROVIDERS: ATTEND Urology | DX: Z90.5 Acquired absence of kidney (principal); N28.1 Cyst of kidney, acquired ==

== ENCOUNTER 2024-11-09 09:28 | Emergency (ER) | payer MEDICARE, OTHER ==
[~2024-11-09] VITALS: Ht 165.1 cm; Wt 68.2 kg
[2024-11-09 10:15] LABS: BASO % 0.3 % (0.0-1.0); EOS # 0.1 10^3/uL (0.0-0.5); EOS % 1.2 % (0.0-3.0); HEMATOCRIT 44.9 % (36.0-47.0); HEMOGLOBIN 14.7 g/dl (12.0-15.5); LYMPH % 10.6 % (24.0-44.0); MEAN CORPUSCULAR HEMOGLOBIN 30.5 pg (27.0-33.0); MEAN CORPUSCULAR HGB CONC 32.7 g/dl (32.0-36.5); MEAN CORPUSCULAR VOLUME 93.2 fl (80.0-96.0); MONO # 0.5 10^3/uL (0.0-0.8); MONO % 5.3 % (2.0-8.0); NEUTROPHILS # 7.6 10^3/uL (1.5-8.5); NEUTROPHILS % 82.3 % (36.0-66.0); PLATELET COUNT, AUTOMATED 295 10^3/uL (150-450); RED BLOOD COUNT 4.82 10^6/uL (4.00-5.40); WHITE BLOOD COUNT 9.2 10^3/uL (4.0-10.0)
[2024-11-09 10:26] LABS: INR 1.05; PARTIAL THROMBOPLASTIN TIME 26.4 SECONDS (24.8-34.2)
[2024-11-09 10:42] LABS: CALCIUM LEVEL 10.8 MG/DL (8.3-10.6); CREATININE FOR GFR 1.21 MG/DL (0.55-1.30); GLOMERULAR FILTRATION RATE 45.1 (>32); POTASSIUM SERUM 4.6 MMOL/L (3.5-5.1)
[2024-11-09 11:23] VITALS: BP 147/79; TEMP 97; O2SAT 99
== END 2024-11-09 11:28 | disposition home or self-care (01) ==
LOC: M ED 09:28
DX: R04.0 Epistaxis (principal); I48.91 Unspecified atrial fibrillation; E11.9 Type 2 diabetes mellitus without complications; I10 Essential (primary) hypertension; Z79.899 Other long term (current) drug therapy

== ENCOUNTER 2024-11-19 11:31 | Emergency (ER) | payer MEDICARE, OTHER ==
[~2024-11-19] VITALS: Ht 165.1 cm; Wt 69.9 kg
[2024-11-19 13:24] LABS: HEMATOCRIT 42.3 % (36.0-47.0); HEMOGLOBIN 14.2 g/dl (12.0-15.5); MEAN CORPUSCULAR HEMOGLOBIN 31.3 pg (27.0-33.0); MEAN CORPUSCULAR HGB CONC 33.6 g/dl (32.0-36.5); MEAN CORPUSCULAR VOLUME 93.4 fl (80.0-96.0); PLATELET COUNT, AUTOMATED 272 10^3/uL (150-450); RED BLOOD COUNT 4.53 10^6/uL (4.00-5.40); WHITE BLOOD COUNT 8.6 10^3/uL (4.0-10.0)
[2024-11-19] MEDS: OXYMETAZOLINE 0.05% NASAL SPRAY (AFRIN) ONE (13:29)
[2024-11-19 13:36] LABS: INR 1.04; PARTIAL THROMBOPLASTIN TIME 27.1 SECONDS (24.8-34.2)
[2024-11-19 13:49] LABS: CALCIUM LEVEL 10.7 MG/DL (8.3-10.6); GLOMERULAR FILTRATION RATE 56.2 (>32); POTASSIUM SERUM 4.8 MMOL/L (3.5-5.1)
[2024-11-19 14:17] VITALS: BP 142/84; TEMP 96.1; O2SAT 98
== END 2024-11-19 14:21 | disposition home or self-care (01) ==
LOC: M ED 11:31
DX: R04.0 Epistaxis (principal); I48.91 Unspecified atrial fibrillation; E11.9 Type 2 diabetes mellitus without complications; I10 Essential (primary) hypertension; E78.5 Hyperlipidemia, unspecified; K21.9 Gastro-esophageal reflux disease without esophagitis; Z79.01 Long term (current) use of anticoagulants; Z79.899 Other long term (current) drug therapy

== ENCOUNTER 2024-12-02 16:47 | Emergency (ER) | payer MEDICARE ==
[~2024-12-02] VITALS: Ht 165.1 cm; Wt 69.5 kg
[2024-12-02 16:51] VITALS: BP 140/81; TEMP 97.8; O2SAT 99
[2024-12-02 18:18] LABS: HEMOGLOBIN 14.3 g/dl (12.0-15.5); MEAN CORPUSCULAR HEMOGLOBIN 30.7 pg (27.0-33.0); MEAN CORPUSCULAR HGB CONC 32.5 g/dl (32.0-36.5); MEAN CORPUSCULAR VOLUME 94.4 fl (80.0-96.0); PLATELET COUNT, AUTOMATED 260 10^3/uL (150-450); RED BLOOD COUNT 4.66 10^6/uL (4.00-5.40); WHITE BLOOD COUNT 7.6 10^3/uL (4.0-10.0)
[2024-12-02 18:27] LABS: INR 1.13; PARTIAL THROMBOPLASTIN TIME 27.6 SECONDS (24.8-34.2); PROTHROMBIN TIME 14.8 SECONDS (12.5-14.5)
== END 2024-12-02 19:08 | disposition home or self-care (01) ==
LOC: M ED 16:47
DX: R04.0 Epistaxis (principal); I48.91 Unspecified atrial fibrillation; Z79.01 Long term (current) use of anticoagulants; Z79.899 Other long term (current) drug therapy

== ENCOUNTER → 2025-07-31 | Outpatient (CLI) | payer MEDICARE ==
[~2025-07-31] MED LIST changes: -PRAV40TA2 PO; +PRAV40TA85 PO
== END ==
LOC: M RAD 12:02
PROVIDERS: ATTEND Urology
DX: Z90.5 Acquired absence of kidney (principal); N28.1 Cyst of kidney, acquired; R93.421 Abnormal radiologic findings on diagnostic imaging of right kidney